=== PATIENT | female | born 1930 | race Caucasian/White ===

== ENCOUNTER 2016-05-06 06:15 | Day surgery (SDC) | payer MEDICARE, MEDICAID ==
[~2016-05-06] VITALS: Ht 162.6 cm; Wt 103.6 kg
[2016-05-06] VITALS (374 sets, daily range): BP systolic 137–184; BP diastolic 61–110; PULSE 47–87; TEMP 97.6–98.1; O2SAT 76–100
[~2016-05-06 06:15] MED LIST: ALEVE 220MG220 MG PO; ANTIVERT 12.512.5 MG PO; ASPIRIN E.C. 8181 MG PO; B-12 100 MCG; CALCIUM CARBON500 M1 PO; CELEBREX 200MG200 MG PO; CIPRO 500MG TA500 MG PO; COLACE 100100 MG/CAP PO; COZAAR 50MG50 MG/TAB PO; DIOVAN80 M1 PO; FERROUS SU325 MG/TAB PO; FLONASE NASAL S16 GM NS; FOLIC ACID0.4 MG PO; HCTZ12.5TAB PO; LASIX 20MG TABL20 MG PO; MAGNESIUM250 M1 PO; MELOXICAM PO; METHOTREXA2.5 MG/TAB PO; MIRAPEX 0.0.125 MG/T PO; MULTI VITAMINS1 TAB PO; MVI PO; NITROSTAT0.4 MG/TAB SL; PLAVIX 75MG TAB75 MG PO; POTASSIUM CHLO10 ME2 PO; PRESERVISION1 SGL PO; SINGULAIR 110 MG/TAB PO; TOPROL XL 50MG50 MG PO; ULTRAM 50MG TAB50 MG PO; VITAMIN D PO; VITAMIN D31000 I1 PO; VITAMINC1000TA; ZANTAC 150150 MG PO; ZOCOR5 MG PO
[2016-05-06 07:12] LABS: MEAN CELL VOLUME 96 fl (80.0-100.0); MEAN CORPUSCULAR HGB CONC 31 g/dl (33.0-37.0); MEAN PLATELET VOLUME 10.1 fl (7.4-10.4); PLATELET COUNT 212 K/mm3 (130-400); REDCELL DISTRIBUTION WIDTH-CV 15.6 % (11.5-14.5); WHITE BLOOD COUNT 5.7 K/mm3 (4.8-10.8)
[2016-05-06 07:16] LABS: HEMATOCRIT 31.5 % (37.0-47.0); HEMOGLOBIN 9.8 g/dl (12.5-16.0); MEAN CORPUSCULAR HEMOGLOBIN 30 pg (27.0-31.0)
[2016-05-06 07:18] LABS: PROTHROMBIN TIME 11.4 SECONDS (9.7-12.8)
[2016-05-06 07:26] LABS: CALCIUM 9.2 mg/dL (8.4-10.2); CREATININE, serum 2.1 mg/dL (0.52-1.25); POTASSIUM 4.1 mmol/L (3.4-5.0)
[2016-05-06] MEDS ORDERED: MAG-OX 400400 MG/TAB PO (07:34)
[2016-05-06] MEDS ORDERED: CALCIUM 600600 M2 PO (07:35)
[2016-05-06] MEDS ORDERED: FOLIC ACID0.8 MG PO (14:17)
[2016-05-07] VITALS (654 sets, daily range): BP systolic 129–155; BP diastolic 68–83; PULSE 52–66; TEMP 97.8–98.2; O2SAT 84–100
[2016-05-07 08:22] LABS: MEAN CELL VOLUME 95 fl (80.0-100.0); MEAN CORPUSCULAR HGB CONC 31 g/dl (33.0-37.0); MEAN PLATELET VOLUME 10.1 fl (7.4-10.4); PLATELET COUNT 205 K/mm3 (130-400); RED BLOOD COUNT 3.35 M/mm3 (4.10-5.30); REDCELL DISTRIBUTION WIDTH-CV 15.5 % (11.5-14.5); WHITE BLOOD COUNT 5.6 K/mm3 (4.8-10.8)
[2016-05-07 08:33] LABS: CALCIUM 8.9 mg/dL (8.4-10.2); CREATININE, serum 1.3 mg/dL (0.52-1.25); POTASSIUM 4.3 mmol/L (3.4-5.0)
[2016-05-07 08:37] LABS: HEMATOCRIT 31.9 % (37.0-47.0); HEMOGLOBIN 9.9 g/dl (12.5-16.0); MEAN CORPUSCULAR HEMOGLOBIN 30 pg (27.0-31.0)
[2016-05-07] MEDS ORDERED: BRILINTA90 MG PO (10:47)
== END 2016-05-07 11:35 | disposition home or self-care (01) ==
LOC: COL.RAD 06:15 → IMCU 17:00 → COL.RAD 05-07 11:35
PROVIDERS: Internal Medicine Cardiovascular Disease
DX: I25.10 Atherosclerotic heart disease of native coronary artery without angina pectoris (principal); I35.8 Other nonrheumatic aortic valve disorders; R06.00 Dyspnea, unspecified; I10 Essential (primary) hypertension; E78.5 Hyperlipidemia, unspecified; G47.33 Obstructive sleep apnea (adult) (pediatric); Z82.49 Family history of ischemic heart disease and other diseases of the circulatory system; Z79.82 Long term (current) use of aspirin; Z79.02 Long term (current) use of antithrombotics/antiplatelets; Z79.899 Other long term (current) drug therapy
CPT/HCPCS: OP; C1725; C1760; C1769; C1874; C1887; C1894; C9600; C9601; J0583; J2250; J3010; Q9967

== ENCOUNTER 2016-09-24 15:30 | Inpatient (IN) | payer MEDICARE, MEDICAID ==
[~2016-09-24] VITALS: Ht 162.6 cm; Wt 94.9 kg
[2016-09-24 00:10] VITALS: BP 122/69; PULSE 58; TEMP 98.1
[~2016-09-24 15:30] MED LIST changes: +BRILINTA90 MG PO; +CALCIUM 600600 M2 PO; +FOLIC ACID0.8 MG PO; +MAG-OX 400400 MG/TAB PO
[2016-09-24 16:49] VITALS: BP 105/48; PULSE 63; TEMP 98
[2016-09-24] MEDS ORDERED: FLONASE NASAL S16 GM NS (17:03)
[2016-09-24] MEDS ORDERED: COLACE 100100 MG/CAP PO (17:07)
[2016-09-24] MEDS ORDERED: BRILINTA60 MG PO (17:22)
[2016-09-24 18:21] VITALS: BP 124/56; PULSE 64
[2016-09-24] MEDS ORDERED: BRILINTA90 MG PO (18:32)
[2016-09-24 20:50] VITALS: BP 128/66; PULSE 61
[2016-09-24 21:44] VITALS: TEMP 98
[2016-09-24 23:00] VITALS: BP 114/67; PULSE 53
[2016-09-25] VITALS (398 sets, daily range): BP systolic 99–137; BP diastolic 54–86; PULSE 56–74; TEMP 97.1–97.9; O2SAT 84–100
[2016-09-25 06:48] LABS: BASO % 0.2 % (0.0-2.0); EOS # 0.1 (0.0-0.7); EOS % 1.9 % (0-4.0); GRAN # 3.4 (1.4-6.5); GRAN % 70.7 % (42.2-75.2); LYMPH # 0.8 (1.2-3.4); LYMPH % 16.9 % (20.0-51.0); MEAN CELL VOLUME 98 fl (80.0-100.0); MEAN CORPUSCULAR HGB CONC 31 g/dl (33.0-37.0); MEAN PLATELET VOLUME 10.6 fl (7.4-10.4); MONO # 0.5 (0.1-0.6); MONO % 9.7 % (1.7-9.3); PLATELET COUNT 234 K/mm3 (130-400); RED BLOOD COUNT 2.97 M/mm3 (4.10-5.30); REDCELL DISTRIBUTION WIDTH-CV 15.1 % (11.5-14.5); WHITE BLOOD COUNT 4.7 K/mm3 (4.8-10.8)
[2016-09-25 06:51] LABS: HEMATOCRIT 29.1 % (37.0-47.0); MEAN CORPUSCULAR HEMOGLOBIN 30 pg (27.0-31.0)
[2016-09-25 06:55] LABS: PROTHROMBIN TIME 11.6 SECONDS (9.7-12.8)
[2016-09-25 06:58] LABS: PARTIAL THROMBOPLASTIN TIME 28.7 SECONDS (26.0-37.0)
[2016-09-25 07:19] LABS: ADJUSTED CALCIUM 9.1 mg/dL (8.4-10.2); ALBUMIN 3.3 gm/dL (3.5-5.0); BILIRUBIN,TOTAL 0.6 mg/dL (0.0-1.0); CALCIUM 8.5 mg/dL (8.4-10.2); CREATININE, serum 1.68 mg/dL (0.52-1.25); POTASSIUM 3.9 mmol/L (3.4-5.0); TOTAL PROTEIN 5.8 gm/dL (6.4-8.2)
[2016-09-25 07:33] LABS: TROPONIN-I 0.999 ng/mL (0.000-0.034)
[2016-09-26] VITALS (36 sets, daily range): BP systolic 113–121; BP diastolic 58–65; PULSE 61–72; TEMP 97.1–97.8; O2SAT 94–98
[2016-09-26 05:24] LABS: MEAN CELL VOLUME 97 fl (80.0-100.0); MEAN CORPUSCULAR HGB CONC 32 g/dl (33.0-37.0); MEAN PLATELET VOLUME 10.5 fl (7.4-10.4); PLATELET COUNT 213 K/mm3 (130-400); RED BLOOD COUNT 3.09 M/mm3 (4.10-5.30); REDCELL DISTRIBUTION WIDTH-CV 15.4 % (11.5-14.5); WHITE BLOOD COUNT 5.6 K/mm3 (4.8-10.8)
[2016-09-26 05:31] LABS: HEMATOCRIT 29.9 % (37.0-47.0); HEMOGLOBIN 9.6 g/dl (12.5-16.0); MEAN CORPUSCULAR HEMOGLOBIN 31 pg (27.0-31.0)
[2016-09-26 05:38] LABS: CALCIUM 8.4 mg/dL (8.4-10.2); CREATININE, serum 1.42 mg/dL (0.52-1.25); POTASSIUM 4.3 mmol/L (3.4-5.0)
[2016-09-26] MEDS ORDERED: LIPITOR20 MG PO (10:25)
[2016-09-26] MEDS ORDERED: ZESTRIL 10MG10 MG PO (10:26)
== END 2016-09-26 12:07 | disposition home or self-care (01) | DRG 247 ==
LOC: MEDICAL 15:30 → IMCU 09-25 09:56 → ICU 09-25 19:05
PROVIDERS: Family Medicine; Internal Medicine Cardiovascular Disease
PROC: 027035Z Dilation of Coronary Artery, One Artery with Two Drug-eluting Intraluminal Devices, Percutaneous Approach (ICD-10-PCS; principal; 2016-09-25)
PROC: B2111ZZ Fluoroscopy of Multiple Coronary Arteries using Low Osmolar Contrast (ICD-10-PCS; 2016-09-25)
DX: I21.4 Non-ST elevation (NSTEMI) myocardial infarction (principal); I25.10 Atherosclerotic heart disease of native coronary artery without angina pectoris; I10 Essential (primary) hypertension; G47.33 Obstructive sleep apnea (adult) (pediatric); I35.0 Nonrheumatic aortic (valve) stenosis; I12.9 Hypertensive chronic kidney disease with stage 1 through stage 4 chronic kidney disease, or unspecified chronic kidney disease; N18.9 Chronic kidney disease, unspecified
CPT/HCPCS: 99222-AI; 99233-AI; 99239; A9270-GY; C1760; C1769; C1874; C1887; C9600; J0583; J2250; J3010; J7030; Q9967

== ENCOUNTER 2016-11-17 15:12 | Inpatient (IN) | payer MEDICARE, MEDICAID ==
[~2016-11-17] VITALS: Ht 160 cm; Wt 94.8 kg
[2016-11-17] VITALS (24 sets, daily range): BP systolic 126–157; BP diastolic 40–77; PULSE 63–65; TEMP 97.2–97.8; O2SAT 93–100
[~2016-11-17 15:12] MED LIST changes: +BRILINTA60 MG PO; +LIPITOR20 MG PO; +ZESTRIL 10MG10 MG PO
[2016-11-17] MEDS ORDERED: CALCIUM CARB500 MG PO (16:38)
[2016-11-18 00:17] VITALS: BP 113/50; PULSE 60; TEMP 98
[2016-11-18 03:58] VITALS: BP 104/53; PULSE 59; TEMP 97.9
[2016-11-18 07:34] VITALS: BP 118/37; PULSE 60; TEMP 97.2
[2016-11-18 09:17] VITALS: BP 113/59; PULSE 74; TEMP 98.2
[2016-11-18 11:48] VITALS: BP 143/69; PULSE 60; TEMP 96.8
== END 2016-11-18 14:35 | disposition home or self-care (01) | DRG 244 ==
LOC: IMCU 15:12 → MEDICAL 16:13 → ICU 16:13 → MEDICAL 16:45
PROC: 0JH606Z Insertion of Pacemaker, Dual Chamber into Chest Subcutaneous Tissue and Fascia, Open Approach (ICD-10-PCS; principal; 2016-11-17)
PROC: 02H63JZ Insertion of Pacemaker Lead into Right Atrium, Percutaneous Approach (ICD-10-PCS; 2016-11-17)
PROC: 02HK3JZ Insertion of Pacemaker Lead into Right Ventricle, Percutaneous Approach (ICD-10-PCS; 2016-11-17)
DX: I44.2 Atrioventricular block, complete (principal)
CPT/HCPCS: C1769; C1785; C1894; C1898; J2250; J3010; J3370; J7050

== ENCOUNTER → 2017-09-17 | Outpatient (REF) ==
[~2017-09-17] MED LIST changes: +CALCIUM CARB500 MG PO; +CELEBREX 1100 MG/CAP PO; +LIPITOR 40MG TA40 MG PO; +TOPROL XL 25MG25 MG PO; +TYLENOL 500MG500 MG PO; +XYZAL5 MG PO; +ZANTAC 150MG T150 MG PO
== END ==
LOC: ZLAB.STJ 09:48
DX: Z53.8 Procedure and treatment not carried out for other reasons (principal)

== ENCOUNTER → 2017-10-04 | Outpatient (REF) ==
[2017-10-04 09:44] LABS: CALCIUM 8.4 mg/dL (8.4-10.2); CREATININE, serum 2.33 mg/dL (0.52-1.25)
== END ==
LOC: ZLAB.STJ 09:24
PROVIDERS: Internal Medicine Nephrology
DX: Z99.2 Dependence on renal dialysis (principal)

== ENCOUNTER → 2017-10-11 | Outpatient (REF) ==
[2017-10-11 09:26] LABS: URINE PROTEIN:CREAT RATIO 0.38 (0.00-0.14)
[2017-10-11 11:11] LABS: CREATININE, serum 2.14 mg/dL (0.52-1.25); URINE CREATININE CLEARANCE 14.6 mL/min (88-128); URINE TOTAL VOLUME 275 mL
== END ==
LOC: ZLAB.STJ 09:10
PROVIDERS: Internal Medicine Nephrology
DX: Z99.2 Dependence on renal dialysis (principal)

== ENCOUNTER → 2017-10-25 | Outpatient (REF) ==
[~2017-10-25] MED LIST changes: +RENO CAPS1 SGL PO
[2017-10-25 15:28] LABS: CALCIUM 8.9 mg/dL (8.4-10.2); CREATININE, serum 2.31 mg/dL (0.52-1.25); POTASSIUM 4.3 mmol/L (3.4-5.0)
== END ==
LOC: ZLAB.STJ 14:58
PROVIDERS: Internal Medicine Nephrology
DX: N18.9 Chronic kidney disease, unspecified (principal)

== ENCOUNTER 2017-11-16 12:25 | Inpatient (IN) | payer MEDICARE, MEDICAID ==
[~2017-11-16] VITALS: Ht 165.1 cm; Wt 79.2 kg
[2017-11-16] VITALS (443 sets, daily range): BP systolic 69–111; BP diastolic 37–71; PULSE 94–117; TEMP 97.6–98; O2SAT 84–99
[~2017-11-16 12:25] MED LIST changes: +LASIX 40MG TABL40 MG PO
[2017-11-16 13:02] LABS: BASO % 0.6 % (0.0-2.0); EOS # 0.1 (0.0-0.7); EOS % 1.9 % (0-4.0); GRAN % 74.5 % (42.2-75.2); LYMPH # 0.7 (1.2-3.4); LYMPH % 12.2 % (20.0-51.0); MEAN CELL VOLUME 101 fl (80.0-100.0); MEAN CORPUSCULAR HGB CONC 32 g/dl (33.0-37.0); MEAN PLATELET VOLUME 10.1 fl (7.4-10.4); MONO # 0.6 (0.1-0.6); MONO % 10.4 % (1.7-9.3); PLATELET COUNT 204 K/mm3 (130-400); RED BLOOD COUNT 2.76 M/mm3 (4.10-5.30); REDCELL DISTRIBUTION WIDTH-CV 16.3 % (11.5-14.5)
[2017-11-16 13:05] LABS: PROTHROMBIN TIME 11.4 SECONDS (9.7-12.8)
[2017-11-16 13:07] LABS: PARTIAL THROMBOPLASTIN TIME 33.8 SECONDS (26.0-37.0)
[2017-11-16 13:11] LABS: ALBUMIN 3.7 gm/dL (3.5-5.0); BILIRUBIN,TOTAL 0.8 mg/dL (0.0-1.0); CALCIUM 8.6 mg/dL (8.4-10.2); CREATININE, serum 0.86 mg/dL (0.52-1.25); MAGNESIUM 1.9 mg/dL (1.6-2.3); POTASSIUM 3.5 mmol/L (3.4-5.0); TOTAL PROTEIN 6.4 gm/dL (6.4-8.2)
[2017-11-16 13:13] LABS: HEMOGLOBIN 8.9 g/dl (12.5-16.0); MEAN CORPUSCULAR HEMOGLOBIN 32 pg (27.0-31.0)
[2017-11-16 13:25] LABS: TROPONIN-I 0.039 ng/mL (0.000-0.034)
[2017-11-16] MEDS ORDERED: PRESERVISION1 SGL PO (13:36)
[2017-11-16] MEDS ORDERED: LIQUACEL 30 ML30 ML PO (13:45)
[2017-11-16] MEDS ORDERED: LASIX 40MG TABL40 MG PO (13:46)
[2017-11-16] MEDS ORDERED: COLACE 100100 MG/CAP PO (13:48)
[2017-11-16] MEDS ORDERED: VITAMINC1000TA PO (13:49)
[2017-11-16] MEDS ORDERED: B-12 100 MCG PO (13:50)
[2017-11-16] MEDS ORDERED: BRILINTA90 MG PO (13:58)
[2017-11-16] MEDS ORDERED: FERROUS SU325 MG/TAB PO (13:58)
[2017-11-16] MEDS ORDERED: LIPITOR 40MG TA40 MG PO (13:59)
[2017-11-17] VITALS (1318 sets, daily range): BP systolic 87–124; BP diastolic 46–83; PULSE 79–86; TEMP 97–97.5; O2SAT 89–100
[2017-11-17 05:22] LABS: BASO % 0.5 % (0.0-2.0); EOS # 0.1 (0.0-0.7); EOS % 2.4 % (0-4.0); GRAN # 2.7 (1.4-6.5); GRAN % 64.5 % (42.2-75.2); LYMPH # 0.8 (1.2-3.4); LYMPH % 19.8 % (20.0-51.0); MEAN CELL VOLUME 102 fl (80.0-100.0); MEAN CORPUSCULAR HGB CONC 31 g/dl (33.0-37.0); MEAN PLATELET VOLUME 10.2 fl (7.4-10.4); MONO # 0.5 (0.1-0.6); MONO % 12.3 % (1.7-9.3); PLATELET COUNT 190 K/mm3 (130-400); REDCELL DISTRIBUTION WIDTH-CV 16.3 % (11.5-14.5)
[2017-11-17 05:25] LABS: HEMATOCRIT 22.5 % (37.0-47.0); MEAN CORPUSCULAR HEMOGLOBIN 32 pg (27.0-31.0)
[2017-11-17 05:31] LABS: CREATININE, serum 1.52 mg/dL (0.52-1.25); POTASSIUM 3.5 mmol/L (3.4-5.0)
[2017-11-18] VITALS (379 sets, daily range): BP systolic 98–139; BP diastolic 45–95; PULSE 67–89; TEMP 97–98.7; O2SAT 91–100
[2017-11-18 05:59] LABS: BASO % 0.5 % (0.0-2.0); EOS # 0.1 (0.0-0.7); GRAN # 5.3 (1.4-6.5); GRAN % 80.4 % (42.2-75.2); LYMPH # 0.6 (1.2-3.4); MEAN CELL VOLUME 101 fl (80.0-100.0); MEAN CORPUSCULAR HGB CONC 32 g/dl (33.0-37.0); MEAN PLATELET VOLUME 10.4 fl (7.4-10.4); MONO # 0.5 (0.1-0.6); MONO % 7.5 % (1.7-9.3); PLATELET COUNT 204 K/mm3 (130-400)
[2017-11-18 06:02] LABS: HEMATOCRIT 28.2 % (37.0-47.0); HEMOGLOBIN 8.9 g/dl (12.5-16.0); MEAN CORPUSCULAR HEMOGLOBIN 32 pg (27.0-31.0)
[2017-11-18 06:13] LABS: CALCIUM 8.2 mg/dL (8.4-10.2); CREATININE, serum 2.06 mg/dL (0.52-1.25); POTASSIUM 3.6 mmol/L (3.4-5.0)
[2017-11-19 00:20] VITALS: BP 117/55; PULSE 69; TEMP 98
[2017-11-19 04:44] VITALS: BP 115/61; PULSE 71; TEMP 97.9
[2017-11-19 06:52] LABS: BASO % 0.4 % (0.0-2.0); EOS # 0.2 (0.0-0.7); EOS % 2.8 % (0-4.0); GRAN # 5.3 (1.4-6.5); GRAN % 78.7 % (42.2-75.2); LYMPH # 0.6 (1.2-3.4); LYMPH % 8.1 % (20.0-51.0); MEAN CELL VOLUME 97 fl (80.0-100.0); MEAN CORPUSCULAR HGB CONC 33 g/dl (33.0-37.0); MEAN PLATELET VOLUME 10.4 fl (7.4-10.4); MONO # 0.6 (0.1-0.6); MONO % 9.1 % (1.7-9.3); PLATELET COUNT 194 K/mm3 (130-400); RED BLOOD COUNT 3.01 M/mm3 (4.10-5.30); REDCELL DISTRIBUTION WIDTH-CV 17.8 % (11.5-14.5)
[2017-11-19 06:53] LABS: HEMATOCRIT 29.2 % (37.0-47.0); HEMOGLOBIN 9.5 g/dl (12.5-16.0); MEAN CORPUSCULAR HEMOGLOBIN 32 pg (27.0-31.0)
[2017-11-19 07:04] LABS: CALCIUM 8.3 mg/dL (8.4-10.2); CREATININE, serum 1.89 mg/dL (0.52-1.25); POTASSIUM 3.3 mmol/L (3.4-5.0)
[2017-11-19 08:30] VITALS: BP 108/57; PULSE 69; TEMP 97.4
[2017-11-19 11:45] LABS: CREATININE, serum 1.52 mg/dL (0.52-1.25); URINE CREATININE CLEARANCE 0.1 mL/min (88-128); URINE TOTAL VOLUME 425 mL
[2017-11-19 12:52] VITALS: BP 115/70; PULSE 74; TEMP 97.6
[2017-11-19 15:59] VITALS: BP 112/52; PULSE 59; TEMP 97.6
[2017-11-19 19:50] VITALS: BP 119/68; PULSE 79; TEMP 98.7
[2017-11-20 00:16] VITALS: BP 121/58; PULSE 73; TEMP 98.1
[2017-11-20 03:45] VITALS: BP 121/60; PULSE 69; TEMP 98.4
[2017-11-20 07:07] LABS: MEAN CELL VOLUME 99 fl (80.0-100.0); MEAN CORPUSCULAR HGB CONC 32 g/dl (33.0-37.0); MEAN PLATELET VOLUME 10.4 fl (7.4-10.4); PLATELET COUNT 213 K/mm3 (130-400); RED BLOOD COUNT 3.09 M/mm3 (4.10-5.30); REDCELL DISTRIBUTION WIDTH-CV 17.3 % (11.5-14.5)
[2017-11-20 07:21] VITALS: BP 119/64; PULSE 69; TEMP 98.4
[2017-11-20 07:23] LABS: CALCIUM 8.2 mg/dL (8.4-10.2); CREATININE, serum 2.3 mg/dL (0.52-1.25); POTASSIUM 3.3 mmol/L (3.4-5.0)
[2017-11-20 07:27] LABS: HEMATOCRIT 30.6 % (37.0-47.0); HEMOGLOBIN 9.8 g/dl (12.5-16.0); MEAN CORPUSCULAR HEMOGLOBIN 32 pg (27.0-31.0)
[2017-11-20 11:30] VITALS: BP 126/79; PULSE 72; TEMP 98.3
[2017-11-20 16:12] VITALS: BP 118/71; PULSE 70; TEMP 98.1
[2017-11-20 20:00] VITALS: BP 129/62; PULSE 71; TEMP 99.2
[2017-11-21] VITALS: BP 124/68; PULSE 76; TEMP 98.2
[2017-11-21 04:00] VITALS: BP 112/59; PULSE 61; TEMP 98.9
[2017-11-21 07:10] VITALS: BP 121/60; PULSE 72; TEMP 98.6
[2017-11-21 09:25] LABS: HEMOGLOBIN 10.8 g/dl (12.5-16.0); MEAN CELL VOLUME 100 fl (80.0-100.0); MEAN CORPUSCULAR HEMOGLOBIN 32 pg (27.0-31.0); MEAN CORPUSCULAR HGB CONC 32 g/dl (33.0-37.0); MEAN PLATELET VOLUME 9.7 fl (7.4-10.4); PLATELET COUNT 237 K/mm3 (130-400); RED BLOOD COUNT 3.43 M/mm3 (4.10-5.30); REDCELL DISTRIBUTION WIDTH-CV 17.2 % (11.5-14.5)
[2017-11-21 09:27] LABS: HEMATOCRIT 34.2 % (37.0-47.0)
[2017-11-21 09:34] LABS: CALCIUM 8.6 mg/dL (8.4-10.2); CREATININE, serum 2.17 mg/dL (0.52-1.25); POTASSIUM 3.4 mmol/L (3.4-5.0)
[2017-11-21 12:18] VITALS: BP 117/63; PULSE 68; TEMP 98.4
[2017-11-21 16:00] VITALS: BP 133/73; PULSE 76; TEMP 98.3
[2017-11-21 21:04] VITALS: BP 132/94; PULSE 79; TEMP 98
[2017-11-22 04:00] VITALS: BP 98/43; PULSE 56; TEMP 98.4
[2017-11-22 05:14] VITALS: BP 119/62; PULSE 66
[2017-11-22 07:20] VITALS: BP 120/63; PULSE 76; TEMP 98
[2017-11-22] MEDS ORDERED: PACERONE400 MG PO (11:14)
[2017-11-22 11:45] VITALS: BP 120/67; BP 132/64; PULSE 70; PULSE 72; TEMP 98.4
[2017-11-22 12:57] VITALS: BP 120/67; PULSE 70; TEMP 98.4
== END 2017-11-22 14:17 | DRG 280 ==
LOC: COL.ER 12:25 → ICU 13:32 → MEDICAL 11-18 11:25 → ICU 11-18 11:25 → MEDICAL 11-18 11:25
PROVIDERS: Emergency Medicine; Internal Medicine Cardiovascular Disease; Internal Medicine Nephrology
PROC: 5A1D70Z Performance of Urinary Filtration, Intermittent, Less than 6 Hours Per Day (ICD-10-PCS; principal; 2017-11-18)
PROC: 5A1D70Z Performance of Urinary Filtration, Intermittent, Less than 6 Hours Per Day (ICD-10-PCS; 2017-11-20)
DX: I48.0 Paroxysmal atrial fibrillation (principal); I21.A1 Myocardial infarction type 2; N18.6 End stage renal disease; N17.9 Acute kidney failure, unspecified; I50.22 Chronic systolic (congestive) heart failure; I13.2 Hypertensive heart and chronic kidney disease with heart failure and with stage 5 chronic kidney disease, or end stage renal disease; Z66 Do not resuscitate; I25.10 Atherosclerotic heart disease of native coronary artery without angina pectoris; Z95.5 Presence of coronary angioplasty implant and graft; Z95.0 Presence of cardiac pacemaker; D63.1 Anemia in chronic kidney disease; I35.0 Nonrheumatic aortic (valve) stenosis
CPT/HCPCS: J0282; J0882; J1650; J1940; J2916; J7030; J7060; P9016

== ENCOUNTER → 2017-12-01 | Outpatient (CLI) | payer MEDICARE, MEDICAID ==
[~2017-12-01] MED LIST changes: +B-12 100 MCG PO; +LIQUACEL 30 ML30 ML PO; +PACERONE400 MG PO; +VITAMINC1000TA PO
== END ==
LOC: COL.VAS 09:39
DX: N18.6 End stage renal disease (principal)
CPT/HCPCS: G0365

== ENCOUNTER → 2018-01-24 | Outpatient (CLI) | payer MEDICARE, MEDICAID | LOC: COL.VAS 11:41 | DX: N18.6 End stage renal disease (principal) | CPT/HCPCS: G0365 ==

== ENCOUNTER 2018-03-21 11:27 | Inpatient (IN) | payer MEDICARE, MEDICAID ==
[~2018-03-21] VITALS: Ht 165.1 cm; Wt 72.8 kg
[2018-03-21] VITALS (10 sets, daily range): BP systolic 90–120; BP diastolic 29–47; PULSE 59–71; TEMP 97.7–98.5
[2018-03-21 14:40] LABS: BASO % 0.7 % (0.0-2.0); EOS % 0.9 % (0-4.0); INR 0.9 (0.8-3.0); LYMPH # 0.9 (1.2-3.4); LYMPH % 21.3 % (20.0-51.0); MEAN CELL VOLUME 115 fl (80.0-100.0); MEAN CORPUSCULAR HGB CONC 31 g/dl (33.0-37.0); MEAN PLATELET VOLUME 9.5 fl (7.4-10.4); MONO # 0.3 (0.1-0.6); MONO % 7.6 % (1.7-9.3); PLATELET COUNT 193 K/mm3 (130-400); PROTHROMBIN TIME 10.4 SECONDS (9.7-12.8); RED BLOOD COUNT 1.88 M/mm3 (4.10-5.30); REDCELL DISTRIBUTION WIDTH-CV 17.2 % (11.5-14.5)
[2018-03-21 14:52] LABS: HEMATOCRIT 21.6 % (37.0-47.0); HEMOGLOBIN 6.6 g/dl (12.5-16.0); MEAN CORPUSCULAR HEMOGLOBIN 35 pg (27.0-31.0)
[2018-03-21 15:12] LABS: ALBUMIN 3.3 gm/dL (3.5-5.0); BILIRUBIN,TOTAL 0.3 mg/dL (0.0-1.0); CALCIUM 8.6 mg/dL (8.4-10.2); CREATININE, serum 3.01 mg/dL (0.52-1.25); TOTAL PROTEIN 5.6 gm/dL (6.4-8.2)
[2018-03-21] MEDS ORDERED: CORDARONE200 MG/TAB PO (17:31)
[2018-03-21] MEDS ORDERED: TYLENOL 500MG500 MG PO (17:32)
[2018-03-21] MEDS ORDERED: VITAMIN D 1001000 IU PO (17:33)
[2018-03-21] MEDS ORDERED: MIRALAX PA17 GM/Dose PO (17:36)
[2018-03-21] MEDS ORDERED: NITROSTAT0.4 MG/TAB SL (17:36)
[2018-03-21] MEDS ORDERED: ZANTAC 150MG T150 MG PO (17:37)
[2018-03-21] MEDS ORDERED: PRESERVISION1 SGL PO (17:38)
[2018-03-21] MEDS ORDERED: TOPROL XL 25MG25 MG PO (17:40)
[2018-03-22] VITALS (15 sets, daily range): BP systolic 93–134; BP diastolic 35–76; PULSE 59–68; TEMP 97.4–98.4
[2018-03-22 07:54] LABS: BASO % 0.2 % (0.0-2.0); EOS # 0.1 (0.0-0.7); EOS % 1.1 % (0-4.0); GRAN # 3.5 (1.4-6.5); GRAN % 78.3 % (42.2-75.2); LYMPH # 0.5 (1.2-3.4); MEAN CORPUSCULAR HGB CONC 32 g/dl (33.0-37.0); MEAN PLATELET VOLUME 9.6 fl (7.4-10.4); MONO # 0.4 (0.1-0.6); MONO % 8.7 % (1.7-9.3); PLATELET COUNT 161 K/mm3 (130-400); RED BLOOD COUNT 1.93 M/mm3 (4.10-5.30); REDCELL DISTRIBUTION WIDTH-CV 19.9 % (11.5-14.5)
[2018-03-22 07:56] LABS: HEMATOCRIT 20.8 % (37.0-47.0); MEAN CELL VOLUME 108 fl (80.0-100.0); MEAN CORPUSCULAR HEMOGLOBIN 34 pg (27.0-31.0)
[2018-03-22 08:00] LABS: HEMOGLOBIN 6.6 g/dl (12.5-16.0)
[2018-03-22 08:09] LABS: ALBUMIN 2.8 gm/dL (3.5-5.0); CALCIUM 8.2 mg/dL (8.4-10.2); CREATININE, serum 3.01 mg/dL (0.52-1.25); PHOSPHOROUS 5.5 mg/dL (2.5-4.5); POTASSIUM 3.8 mmol/L (3.4-5.0)
[2018-03-23] VITALS (13 sets, daily range): BP systolic 115–151; BP diastolic 39–66; PULSE 59–82; TEMP 97.2–98.7
[2018-03-23 06:49] LABS: BASO % 0.9 % (0.0-2.0); EOS # 0.1 (0.0-0.7); EOS % 1.5 % (0-4.0); GRAN # 2.2 (1.4-6.5); GRAN % 68.6 % (42.2-75.2); LYMPH # 0.5 (1.2-3.4); LYMPH % 16.2 % (20.0-51.0); MEAN CORPUSCULAR HGB CONC 32 g/dl (33.0-37.0); MEAN PLATELET VOLUME 9.6 fl (7.4-10.4); MONO # 0.4 (0.1-0.6); MONO % 12.2 % (1.7-9.3); PLATELET COUNT 145 K/mm3 (130-400); RED BLOOD COUNT 2.75 M/mm3 (4.10-5.30); REDCELL DISTRIBUTION WIDTH-CV 20.3 % (11.5-14.5)
[2018-03-23 06:58] LABS: HEMATOCRIT 27.9 % (37.0-47.0); MEAN CELL VOLUME 102 fl (80.0-100.0); MEAN CORPUSCULAR HEMOGLOBIN 33 pg (27.0-31.0)
[2018-03-23 06:59] LABS: RETIC # 0.13 M/mm3 (0.02-0.16); RETIC % 4.9 % (0.5-3.52)
[2018-03-23 07:35] LABS: BILIRUBIN,TOTAL 0.6 mg/dL (0.0-1.0); CALCIUM 8.3 mg/dL (8.4-10.2); CREATININE, serum 1.88 mg/dL (0.52-1.25); PHOSPHOROUS 3.2 mg/dL (2.5-4.5); POTASSIUM 3.7 mmol/L (3.4-5.0); TOTAL PROTEIN 5.3 gm/dL (6.4-8.2)
[2018-03-23 08:13] LABS: THYROID STIMULATING HORMONE 8.5 uIU/mL (0.465-4.680)
[2018-03-23 13:40] LABS: FOLATE (FOLIC ACID) 14.6 ng/mL (7.0-31.4)
[2018-03-24 00:15] VITALS: BP 130/51; PULSE 65; TEMP 98.9
[2018-03-24 04:27] VITALS: BP 117/42; PULSE 66; TEMP 99.4
[2018-03-24 08:24] VITALS: BP 140/51; PULSE 80; TEMP 98
[2018-03-24 08:41] LABS: BASO % 0.4 % (0.0-2.0); EOS % 0.4 % (0-4.0); GRAN % 79.4 % (42.2-75.2); LYMPH # 0.5 (1.2-3.4); LYMPH % 8.9 % (20.0-51.0); MEAN CELL VOLUME 102 fl (80.0-100.0); MEAN CORPUSCULAR HGB CONC 32 g/dl (33.0-37.0); MEAN PLATELET VOLUME 9.7 fl (7.4-10.4); MONO # 0.5 (0.1-0.6); MONO % 10.3 % (1.7-9.3); PLATELET COUNT 167 K/mm3 (130-400); RED BLOOD COUNT 2.52 M/mm3 (4.10-5.30); REDCELL DISTRIBUTION WIDTH-CV 19.6 % (11.5-14.5)
[2018-03-24 08:42] LABS: HEMATOCRIT 25.6 % (37.0-47.0); HEMOGLOBIN 8.3 g/dl (12.5-16.0); MEAN CORPUSCULAR HEMOGLOBIN 33 pg (27.0-31.0)
[2018-03-24 08:52] LABS: ALBUMIN 2.7 gm/dL (3.5-5.0); CALCIUM 8.4 mg/dL (8.4-10.2); CREATININE, serum 2.26 mg/dL (0.52-1.25); POTASSIUM 3.6 mmol/L (3.4-5.0)
[2018-03-24] MEDS ORDERED: SYNTHROID 0.0.025 MG PO (10:19)
[2018-03-24 13:30] LABS: KAPPA FREE LIGHT CHAIN-SERUM 8.31 mg/dL (()); LAMDA FREE LIGHT CHAIN SERUM 3.69 mg/dL (())
== END 2018-03-24 17:10 | DRG 377 ==
LOC: COL.ER 11:27 → MEDICAL 15:32
PROVIDERS: Emergency Medicine; Internal Medicine Gastroenterology; Internal Medicine Medical Oncology; Internal Medicine Nephrology
PROC: 5A1D70Z Performance of Urinary Filtration, Intermittent, Less than 6 Hours Per Day (ICD-10-PCS; 2018-03-22)
PROC: 0W3P8ZZ Control Bleeding in Gastrointestinal Tract, Via Natural or Artificial Opening Endoscopic (ICD-10-PCS; principal; 2018-03-23 14:00)
PROC: 0DJD8ZZ Inspection of Lower Intestinal Tract, Via Natural or Artificial Opening Endoscopic (ICD-10-PCS; 2018-03-23 14:00)
PROC: 5A1D70Z Performance of Urinary Filtration, Intermittent, Less than 6 Hours Per Day (ICD-10-PCS; 2018-03-24)
DX: K57.31 Diverticulosis of large intestine without perforation or abscess with bleeding (principal); N18.6 End stage renal disease; I13.2 Hypertensive heart and chronic kidney disease with heart failure and with stage 5 chronic kidney disease, or end stage renal disease; I50.22 Chronic systolic (congestive) heart failure; D62 Acute posthemorrhagic anemia; Z66 Do not resuscitate; D12.2 Benign neoplasm of ascending colon; D12.5 Benign neoplasm of sigmoid colon; I25.10 Atherosclerotic heart disease of native coronary artery without angina pectoris; I48.0 Paroxysmal atrial fibrillation; Z79.01 Long term (current) use of anticoagulants; Z95.2 Presence of prosthetic heart valve; Z95.5 Presence of coronary angioplasty implant and graft; Z99.2 Dependence on renal dialysis; E78.5 Hyperlipidemia, unspecified; Z95.0 Presence of cardiac pacemaker; D63.1 Anemia in chronic kidney disease; E03.9 Hypothyroidism, unspecified
CPT/HCPCS: J0882; J2704; J2916; J7050; J7120; P9016

== ENCOUNTER 2018-04-06 15:34 | Emergency (ER) | payer MEDICARE, MEDICAID ==
[~2018-04-06] VITALS: Ht 165.1 cm; Wt 72.7 kg
[~2018-04-06 15:34] MED LIST changes: +CORDARONE200 MG/TAB PO; +MIRALAX PA17 GM/Dose PO; +SYNTHROID 0.0.025 MG PO; +VITAMIN D 1001000 IU PO
[2018-04-06 15:37] VITALS: TEMP 97.9
[2018-04-06 16:51] LABS: BASO % 0.6 % (0.0-2.0); EOS % 0.4 % (0-4.0); GRAN # 3.8 (1.4-6.5); GRAN % 73.3 % (42.2-75.2); HEMATOCRIT 26.9 % (37.0-47.0); HEMOGLOBIN 8.7 g/dl (12.5-16.0); LYMPH # 0.7 (1.2-3.4); LYMPH % 13.8 % (20.0-51.0); MEAN CELL VOLUME 103 fl (80.0-100.0); MEAN CORPUSCULAR HEMOGLOBIN 33 pg (27.0-31.0); MEAN CORPUSCULAR HGB CONC 32 g/dl (33.0-37.0); MEAN PLATELET VOLUME 8.9 fl (7.4-10.4); MONO # 0.6 (0.1-0.6); MONO % 11.5 % (1.7-9.3); PLATELET COUNT 281 K/mm3 (130-400); RED BLOOD COUNT 2.61 M/mm3 (4.10-5.30); REDCELL DISTRIBUTION WIDTH-CV 17.2 % (11.5-14.5)
[2018-04-06 17:01] LABS: ALBUMIN 3.1 gm/dL (3.5-5.0); BILIRUBIN,TOTAL 0.3 mg/dL (0.0-1.0); CALCIUM 8.4 mg/dL (8.4-10.2); CREATININE, serum 2.68 mg/dL (0.52-1.25); POTASSIUM 3.9 mmol/L (3.4-5.0); TOTAL PROTEIN 5.9 gm/dL (6.4-8.2); URIC ACID 4.5 mg/dL (2.5-6.2)
[2018-04-06 17:17] LABS: SYNOVIAL FL. MONONUCLEAR 7.1 % (0-75); SYNOVIAL FLUID RBC 41000 /mm3 (0-0); SYNOVIAL FLUID WBC 17349 /mm3 (200-600)
[2018-04-06] MEDS ORDERED: PRESERVISION1 SGL PO (17:17)
[2018-04-06] MEDS ORDERED: VITAMIN D31000 I1 PO (17:17)
[2018-04-06 17:21] LABS: SYNOVIAL FLUID APPEARANCE CLOUDY; SYNOVIAL FLUID COLOR RED
[2018-04-06 17:25] LABS: C-REACTIVE PROTEIN 13.4 mg/dL (0.0-0.9)
[2018-04-06] MEDS ORDERED: ULTRAM 50MG TAB50 MG PO (17:39)
[2018-04-06 19:15] VITALS: BP 127/65; PULSE 70
== END 2018-04-06 19:16 | disposition home or self-care (01) ==
LOC: COL.ER 15:34
PROVIDERS: Emergency Medicine
DX: M17.12 Unilateral primary osteoarthritis, left knee (principal); I12.0 Hypertensive chronic kidney disease with stage 5 chronic kidney disease or end stage renal disease; N18.6 End stage renal disease; Z99.2 Dependence on renal dialysis; Z79.82 Long term (current) use of aspirin

== ENCOUNTER 2018-04-09 13:32 | Emergency (ER) | payer MEDICARE, MEDICAID ==
[~2018-04-09] VITALS: Ht 165.1 cm; Wt 72.7 kg
[2018-04-09 13:35] VITALS: TEMP 97.7
[2018-04-09 14:14] LABS: BASO % 0.3 % (0.0-2.0); EOS % 0.1 % (0-4.0); GRAN # 6.1 (1.4-6.5); GRAN % 84.1 % (42.2-75.2); LYMPH # 0.3 (1.2-3.4); MEAN CELL VOLUME 102 fl (80.0-100.0); MEAN CORPUSCULAR HGB CONC 31 g/dl (33.0-37.0); MEAN PLATELET VOLUME 8.9 fl (7.4-10.4); MONO # 0.8 (0.1-0.6); MONO % 10.8 % (1.7-9.3); PLATELET COUNT 284 K/mm3 (130-400); RED BLOOD COUNT 2.74 M/mm3 (4.10-5.30); REDCELL DISTRIBUTION WIDTH-CV 16.7 % (11.5-14.5)
[2018-04-09 14:16] LABS: HEMATOCRIT 27.9 % (37.0-47.0); HEMOGLOBIN 8.7 g/dl (12.5-16.0); MEAN CORPUSCULAR HEMOGLOBIN 32 pg (27.0-31.0)
[2018-04-09 14:22] LABS: ALBUMIN 3.3 gm/dL (3.5-5.0); BILIRUBIN,TOTAL 0.4 mg/dL (0.0-1.0); CALCIUM 8.8 mg/dL (8.4-10.2); CREATININE, serum 1.59 mg/dL (0.52-1.25); MAGNESIUM 2.1 mg/dL (1.6-2.3); PHOSPHOROUS 2.5 mg/dL (2.5-4.5); POTASSIUM 3.6 mmol/L (3.4-5.0); TOTAL PROTEIN 6.1 gm/dL (6.4-8.2)
[2018-04-09 15:30] VITALS: BP 98/59; PULSE 80
== END 2018-04-09 15:31 | disposition home or self-care (01) ==
LOC: COL.ER 13:32
PROVIDERS: Emergency Medicine
DX: I95.9 Hypotension, unspecified (principal); Z79.82 Long term (current) use of aspirin

== ENCOUNTER 2018-06-16 08:10 | Inpatient (IN) | payer MEDICARE, MEDICAID ==
[~2018-06-16] VITALS: Ht 165.1 cm; Wt 68.4 kg
--- NOTE | 2018-06-17 15:11 | NUR ---
KRISTEL met with the patient to discuss discharge plan. The patient resides at [facility] for long-term [facility] and the patient reports that she would like to return back there upon discharge. KRISTEL presented and explained the patient choice form. The patient signed the patient choice form and she was provided a copy. KRISTEL has contacted and updated Richard at [facility]. KRISTEL to continue to follow.
[2018-06-17 16:00] VITALS: BP 132/60; BP 135/72; PULSE 65; PULSE 91; TEMP 98.2; TEMP 98.5
--- NOTE | 2018-06-17 16:00 | NUR ---
Pt resting in bed after medication and repositioning for left knee pain. Vital signs stable. Call light in reach.
[2018-06-17] MEDS ORDERED: NORCO 325 MG-51 TAB PO (16:41)
[2018-06-17 16:42] LABS: CALCIUM 7.5 mg/dL (8.4-10.2); CREATININE, serum 1.48 mg/dL (0.52-1.25); PHOSPHOROUS 2.9 mg/dL (2.5-4.5); POTASSIUM 3.4 mmol/L (3.4-5.0)
[2018-06-17] MEDS ORDERED: LASIX 80MG TABL80 MG PO (16:42)
[2018-06-17 16:45] LABS: ALBUMIN 2.3 gm/dL (3.5-5.0); BILIRUBIN,TOTAL 0.8 mg/dL (0.0-1.0); C-REACTIVE PROTEIN 8.8 mg/dL (0.0-0.9); CALCIUM 7.6 mg/dL (8.4-10.2); CREATININE, serum 2.04 mg/dL (0.52-1.25); POTASSIUM 3.7 mmol/L (3.4-5.0); TOTAL PROTEIN 5.2 gm/dL (6.4-8.2); TROPONIN-I 0.126 ng/mL (0.000-0.035)
[2018-06-17 18:02] LABS: COLLECTION METHOD CLEAN CATCH; MUCOUS Present /lpf; PH 5 (5-8); URINE APPEARANCE Cloudy; URINE BACTERIA Rare /hpf; URINE BILIRUBIN Negative (NEGATIVE); URINE BLOOD Negative (NEGATIVE); URINE COLOR Amber; URINE GLUCOSE Negative (NEGATIVE); URINE KETONE Negative (NEGATIVE); URINE LEUKOCYTE ESTERASE 2+ (NEGATIVE); URINE NITRATE Negative (NEGATIVE); URINE PROTEIN(semi-quant) Negative (NEGATIVE)
[2018-06-17 18:03] LABS: HEMATOCRIT 28.3 % (37.0-47.0); HEMOGLOBIN 8.6 g/dl (12.5-16.0); MEAN CELL VOLUME 103 fl (80.0-100.0); MEAN CORPUSCULAR HEMOGLOBIN 31 pg (27.0-31.0); MEAN CORPUSCULAR HGB CONC 30 g/dl (33.0-37.0); MEAN PLATELET VOLUME 9.1 fl (7.4-10.4); PLATELET COUNT 256 K/mm3 (130-400); RED BLOOD COUNT 2.74 M/mm3 (4.10-5.30); REDCELL DISTRIBUTION WIDTH-CV 20.1 % (11.5-14.5)
--- NOTE | 2018-06-17 19:13 | NUR ---
report given to KYLEIGH Anderson. Pt to bedside commode with x2 assist. Pt used walker, steady gait.
[2018-06-17 20:00] VITALS: BP 107/46; PULSE 72; TEMP 97.4
[2018-06-18] VITALS (177 sets, daily range): BP systolic 113–124; BP diastolic 52–96; PULSE 67–80; TEMP 98.4–9837; O2SAT 92–100
--- NOTE | 2018-06-18 07:05 | NUR ---
Bedside report received from KYLEIGH Anderson. Patient has no c/o at this time. VS WNL. Will continue to monitor.
[2018-06-18 09:12] LABS: ALBUMIN 2.2 gm/dL (3.5-5.0); CALCIUM 7.7 mg/dL (8.4-10.2); CREATININE, serum 2.1 mg/dL (0.52-1.25); PHOSPHOROUS 3.5 mg/dL (2.5-4.5); POTASSIUM 3.5 mmol/L (3.4-5.0)
--- NOTE | 2018-06-18 10:15 | NUR ---
Patient goes to dialysis at this time
[2018-06-18 10:25] LABS: MEAN CELL VOLUME 104 fl (80.0-100.0); MEAN CORPUSCULAR HGB CONC 30 g/dl (33.0-37.0); MEAN PLATELET VOLUME 9.1 fl (7.4-10.4); PLATELET COUNT 232 K/mm3 (130-400); RED BLOOD COUNT 2.67 M/mm3 (4.10-5.30); REDCELL DISTRIBUTION WIDTH-CV 19.9 % (11.5-14.5)
[2018-06-18 10:33] LABS: HEMATOCRIT 27.8 % (37.0-47.0); HEMOGLOBIN 8.3 g/dl (12.5-16.0); MEAN CORPUSCULAR HEMOGLOBIN 31 pg (27.0-31.0)
[2018-06-18 11:13] LABS: BAND 3 % (0-10); LYMPHOCYTE 6 % (20.0-51.0); NEUTROPHILS 84 % (42.0-75.2); PLATELET ESTIMATE NORMAL (NORMAL)
[2018-06-18 11:14] LABS: ANISOCYTOSIS 1+; HYPOCHROMIA 1+
--- NOTE | 2018-06-18 12:42 | NUR ---
Report called to KYLEIGH Alvarado on Medical floor. Patient will go to room 319 after dialysis is finished.
--- NOTE | 2018-06-18 14:00 | NUR ---
Received patient from dialysis per w/c. Complained of mild nausea. Transferred to bed with walker and two staff assist. Complained of pain in left knee with activity. Hurley given per request. No c/o chest pain. Telemetry intact. Lungs clear. Abdomen soft with active bowel sounds.
--- NOTE | 2018-06-18 18:00 | NUR ---
Resting in bed. States doesn't have much appetite.
--- NOTE | 2018-06-18 20:00 | NUR ---
Shift assessment complete. Patient a/o x3, in bed. Patient c/o 8/10 pain in left knee. Prn pain medication given. INT flushed, patent. Patient denies further needs, will continue to assess.
--- NOTE | 2018-06-19 00:50 | NUR ---
Patient lying in bed, supine. Heels floated, per pt request. Patient c/o 07/27, denies need for pain medication. Will reassess.
[2018-06-19 01:02] VITALS: BP 120/42; PULSE 76; TEMP 99.2
[2018-06-19 04:00] VITALS: BP 117/45; PULSE 75; TEMP 98.9
--- NOTE | 2018-06-19 04:11 | NUR ---
Patient lying in bed, supine. C/o 4/10 pain in left knee, declines medication. Will continue to assess.
[2018-06-19 06:35] LABS: CALCIUM 7.4 mg/dL (8.4-10.2); CREATININE, serum 1.64 mg/dL (0.52-1.25); PHOSPHOROUS 2.6 mg/dL (2.5-4.5)
[2018-06-19 08:04] VITALS: BP 113/43; PULSE 74; TEMP 99.1
--- NOTE | 2018-06-19 08:29 | NUR ---
Assessment complete.patient awake,a/ox3.rates pain to left knee at 3/10.LSCTA.breathing even and unlabored.VSS.patient on Room air.1+ edema to BLE.dialysis catheter to Right chest.INT to RAC.patient denies any needs at this time.call light in reach
[2018-06-19 11:43] VITALS: BP 120/47; PULSE 70; TEMP 98.3
[2018-06-19 16:31] VITALS: BP 107/50; PULSE 77; TEMP 98.5
--- NOTE | 2018-06-19 18:58 | NUR ---
pt has had an unevenful day.breathing even and unlabored.VSS.c/o poor appetite.encouraged to eat.Blood sugars stable.prn [place] given x1 this shift for left knee pain.will continue to monitor.call light in reach
[2018-06-19 19:32] VITALS: BP 104/40; PULSE 81; TEMP 98.9
[2018-06-20 00:23] VITALS: BP 114/48; PULSE 77; TEMP 98.4
--- NOTE | 2018-06-20 01:00 | NUR ---
Patient assessed around 2214. Alert and oriented, and able to make needs known. Complained of pain to left knee, and was given PRN pain medication at that time. LS CTA. Respirations are even and unlabored. Heart with regular rate and rhythm. Capillary refill less than 3 seconds. Non-tenting skin turgor. Pedal and radial pulses present and equal bilareally. Red/purple bruising to right hand and right forearm from IV access. Dialysis catheter to right chest. Gauze and tegaderm over area. Denies pain and discomfort to area. Site is without redness, warmth, and drainage. Peripheral IV to right AC. Patent, and withotu redness, warmth, and drainage. BLE have brown discoloration from knees to toes . Left knee is swollen compared to right knee, and warm to touch. Patient reports this is not new for her, that it has been ortiz on. Mepilex to left lateral foot for skin protection to bony prominence. Staff assists patient with repositioning during rounds. Redness to bottom is blanchable. Denies having pain and discomfort to area. Resting in bed with eyes closed at this time. Call light is within reach.
[2018-06-20 04:38] VITALS: BP 120/48; PULSE 81; TEMP 98.8
[2018-06-20 06:07] LABS: BASO % 0.3 % (0.0-2.0); EOS # 0.1 (0.0-0.7); EOS % 0.9 % (0-4.0); GRAN # 5.4 (1.4-6.5); GRAN % 80.5 % (42.2-75.2); LYMPH # 0.6 (1.2-3.4); LYMPH % 8.7 % (20.0-51.0); MEAN CELL VOLUME 105 fl (80.0-100.0); MEAN CORPUSCULAR HGB CONC 31 g/dl (33.0-37.0); MEAN PLATELET VOLUME 9.2 fl (7.4-10.4); MONO # 0.6 (0.1-0.6); MONO % 8.4 % (1.7-9.3); PLATELET COUNT 201 K/mm3 (130-400); RED BLOOD COUNT 2.41 M/mm3 (4.10-5.30); REDCELL DISTRIBUTION WIDTH-CV 20.1 % (11.5-14.5)
[2018-06-20 06:10] LABS: HEMATOCRIT 25.2 % (37.0-47.0); HEMOGLOBIN 7.8 g/dl (12.5-16.0); MEAN CORPUSCULAR HEMOGLOBIN 32 pg (27.0-31.0)
[2018-06-20 06:19] LABS: CALCIUM 7.3 mg/dL (8.4-10.2); CREATININE, serum 1.93 mg/dL (0.52-1.25); PHOSPHOROUS 2.9 mg/dL (2.5-4.5); POTASSIUM 3.4 mmol/L (3.4-5.0)
--- NOTE | 2018-06-20 06:37 | NUR ---
Patient reports PRN pain medication helped her throughout the night and was able to get some rest. Assisted to the commode with two assist with the use of walker and gait belt. Patient did well. Continent of bladder, no bowel movement. Assisted back to bed as requested. Voices no other needs or concerns at this time. Resting in bed. Call light is within reach.
--- NOTE | 2018-06-20 07:20 | NUR ---
Report received from KYLEIGH Reich.
--- NOTE | 2018-06-20 08:00 | NUR ---
Assessment completed. Pt A/O x4. Pt c/o of pain in left knee. Pt eating breakfast at this time. Call light in reach.
[2018-06-20 08:40] VITALS: BP 121/52; PULSE 85; TEMP 98.7
--- NOTE | 2018-06-20 10:16 | NUR ---
Report given to KYLEIGH Espinal.
--- NOTE | 2018-06-20 11:24 | NUR ---
Follow-up visit; Patient states she is feeling discouraged. Operations Manager Station listened and helped patient find some humor. Gerardo thanked Operations Manager Station for looking in on her and keeping her in Operations Manager Station's prayers.
[2018-06-20 12:47] VITALS: BP 127/51; PULSE 73; TEMP 97.9
--- NOTE | 2018-06-20 13:49 | NUR ---
KRISTEL contacted and faxed updates to [facility]. SW to continue to follow.
[2018-06-20 16:17] VITALS: BP 122/55; PULSE 80; TEMP 98.8
--- NOTE | 2018-06-20 18:41 | NUR ---
Since taking over cares the pt has been resting on and off. She has had intermittent pain in her L knee. Pt is sitting up in the bed waiting for her dinner to arrive and she denies further needs. Call light within reach.
--- NOTE | 2018-06-20 19:32 | NUR ---
Report given to KYLEIGH Hughes.
[2018-06-20 20:00] VITALS: BP 119/50; PULSE 73; TEMP 98.4
--- NOTE | 2018-06-20 20:30 | NUR ---
Shift assessment complete. Pt resting in bed, awake, a&o, cooperative c cares. Pt c/o increased pain to L knee; will give additional pain medication at HS per pt request. Pt denies other c/o. INT patent. HD cath noted to chest, s complication. Pt denies needs. Call light in reach, will monitor.
[2018-06-21 00:20] VITALS: BP 114/50; PULSE 70; TEMP 97.6
[2018-06-21 06:16] LABS: MEAN CELL VOLUME 102 fl (80.0-100.0); MEAN CORPUSCULAR HGB CONC 31 g/dl (33.0-37.0); MEAN PLATELET VOLUME 8.9 fl (7.4-10.4); PLATELET COUNT 185 K/mm3 (130-400); RED BLOOD COUNT 2.48 M/mm3 (4.10-5.30)
[2018-06-21 06:19] LABS: HEMATOCRIT 25.4 % (37.0-47.0); HEMOGLOBIN 7.9 g/dl (12.5-16.0); MEAN CORPUSCULAR HEMOGLOBIN 32 pg (27.0-31.0)
[2018-06-21 06:28] LABS: CALCIUM 7.4 mg/dL (8.4-10.2); CREATININE, serum 2.17 mg/dL (0.52-1.25); PHOSPHOROUS 3.7 mg/dL (2.5-4.5); POTASSIUM 3.4 mmol/L (3.4-5.0)
[2018-06-21 06:58] LABS: ANISOCYTOSIS 1+; EOSINOPHIL 1 % (0-4); LYMPHOCYTE 11 % (20.0-51.0); NEUTROPHILS 87 % (42.0-75.2); PLATELET ESTIMATE NORMAL (NORMAL)
--- NOTE | 2018-06-21 07:30 | NUR ---
Pt sleeping in bed. Assessment complete. Lungs deminished in lower lobes bilaterally. No SOB noted at rest. Incontinent care provided. Small wound at coccyx. Provided barrier ointment to the area. INT CDI no redness.
[2018-06-21 08:24] VITALS: BP 115/57; PULSE 68
--- NOTE | 2018-06-21 09:30 | NUR ---
Routine morning meds given. Pt reports left knee pain 07/27. Pt denies need for pain medication at this time. CMS CKS WNL to bilat lower extremities.
--- NOTE | 2018-06-21 11:00 | NUR ---
Pain rated 7/10 to left knee and right foot. PO pain med initiated at pt request. CMS CKS WNL BLE.
--- NOTE | 2018-06-21 11:00 | NUR ---
This nurse will take over cares for patient. Pt is laying in bed upon entry, she is A/O x3. Student nurse is administering pain medications for pain to L knee 10/26. Left knee more swollen than right. Bilateral legs elevated on pillow. Pt denies N/V. Dialysis catheter to R chest CDI. POC discussed with patient who verbalizes understanding. No further needs at this time. Call light within reach.
--- NOTE | 2018-06-21 11:17 | NUR ---
SW student faxed update to [facility]. Doctor plans to discharge tomorrow.
--- NOTE | 2018-06-21 12:17 | NUR ---
Pt wheeled down to dialysis at this time.
[2018-06-21 15:48] VITALS: BP 125/59; PULSE 66; TEMP 98.8
--- NOTE | 2018-06-21 15:59 | NUR ---
Pt arrived back from dialysis at this time.
[2018-06-21 19:05] VITALS: BP 122/45; PULSE 67; TEMP 98.3
--- NOTE | 2018-06-21 20:45 | NUR ---
Shift assessment complete. Pt resting in bed, awake, a&o, cooperative c cares. Pt reports continued chronic pain to L knee; PRN pain meds admin per pt request. INT patent. Pt denies other needs. Call light in reach, will monitor.
[2018-06-21 23:16] VITALS: BP 122/44; PULSE 68; TEMP 99.1
[2018-06-22 03:00] VITALS: BP 107/49; PULSE 67; TEMP 97.7
--- NOTE | 2018-06-22 07:05 | NUR ---
Pt resting in bed, condition unchanged. Pt has rested well this shift c few needs. Pain well controlled c PRN pain meds upon pt request. No needs at this time. Call light in reach.
--- NOTE | 2018-06-22 07:15 | NUR ---
Pt awake 3 person assist to toilet. Ambulated approx 200 ft. Pt tolerated activity well. Assessment complete as charted. INT in left forearm intact no reddness.
[2018-06-22 07:26] LABS: MEAN CELL VOLUME 105 fl (80.0-100.0); MEAN CORPUSCULAR HGB CONC 31 g/dl (33.0-37.0); MEAN PLATELET VOLUME 9.5 fl (7.4-10.4); PLATELET COUNT 188 K/mm3 (130-400); RED BLOOD COUNT 2.66 M/mm3 (4.10-5.30); REDCELL DISTRIBUTION WIDTH-CV 20.2 % (11.5-14.5)
[2018-06-22 07:27] LABS: HEMATOCRIT 27.8 % (37.0-47.0); HEMOGLOBIN 8.5 g/dl (12.5-16.0); MEAN CORPUSCULAR HEMOGLOBIN 32 pg (27.0-31.0)
[2018-06-22 07:52] LABS: CALCIUM 7.3 mg/dL (8.4-10.2); CREATININE, serum 1.52 mg/dL (0.52-1.25); POTASSIUM 3.7 mmol/L (3.4-5.0)
[2018-06-22 08:48] VITALS: BP 98/62; PULSE 80
[2018-06-22 09:30] LABS: BAND 25 % (0-10); EOSINOPHIL 2 % (0-4); LYMPHOCYTE 9 % (20.0-51.0); NEUTROPHILS 57 % (42.0-75.2); PLATELET ESTIMATE NORMAL (NORMAL)
[2018-06-22 09:31] LABS: ANISOCYTOSIS 2+
--- NOTE | 2018-06-22 09:49 | NUR ---
Patient alert and oriented, answers questions appropriately. See assessment. C/o lightheadedness and nausea/vertigo. Manual BP obtained, see flowsheet. BG 64, orange juice with sugar given. BG increased to 108 fifteen minutes after orange juice consumption. No other c/o at this time.
--- NOTE | 2018-06-22 09:55 | NUR ---
Follow-up visit; Gerardo having a difficult morning and yet hopes to be discharged soon. [employer] Driver continues to keep Gerardo in her prayers and wished her a better rest of the day.
[2018-06-22 10:00] VITALS: BP 98/62; PULSE 72
--- NOTE | 2018-06-22 10:00 | NUR ---
Pt reports drowsiness. Manual BP 98/62. Pt refused brakfast d/t nausea. Primary nurse notified. Pt resting in bed. Assessment unchanged.
[2018-06-22 11:16] VITALS: BP 110/68; PULSE 66; TEMP 97.7
--- NOTE | 2018-06-22 11:20 | NUR ---
Pt resting in bed. Assessment unchanged. BP 110/68. Total input 150 mL. Report off to nurse.
[2018-06-22] MEDS ORDERED: MONODOX100 PO (12:35)
[2018-06-22] MEDS ORDERED: MIRALAX PA17 GM/Dose PO (12:35)
--- NOTE | 2018-06-22 13:28 | NUR ---
Patient is dc to [facility] for [facility] prior to returning to [facility] care. SW faxed discharge orders to [facility] and set up transport via wheelchair van for 2:45pm.
[2018-06-22 14:22] VITALS: BP 110/68; PULSE 66; TEMP 97.7
--- NOTE | 2018-06-22 14:39 | NUR ---
SW student provided an IM form for the patient and explained the contents. Patient was agreeable and signed. Original placed on chart.
--- NOTE | 2018-06-22 15:16 | NUR ---
Patient discharged to [facility] with transporation staff at 1515. Report called.
== END 2018-06-22 15:30 | DRG 280 ==
LOC: COL.ER 08:10 → ICU 15:00 → MEDICAL 15:00 → ICU 06-18 12:48 → MEDICAL 06-18 19:00 → EDSTATUS 06-23 06:11
PROVIDERS: Internal Medicine Nephrology; ADMIT Internal Medicine
PROC: 5A1D70Z Performance of Urinary Filtration, Intermittent, Less than 6 Hours Per Day (ICD-10-PCS; principal; 2018-06-16)
PROC: 5A1D70Z Performance of Urinary Filtration, Intermittent, Less than 6 Hours Per Day (ICD-10-PCS; 2018-06-18)
PROC: 5A1D70Z Performance of Urinary Filtration, Intermittent, Less than 6 Hours Per Day (ICD-10-PCS; 2018-06-21)
DX: I21.4 Non-ST elevation (NSTEMI) myocardial infarction (principal); N18.6 End stage renal disease; I12.0 Hypertensive chronic kidney disease with stage 5 chronic kidney disease or end stage renal disease; T84.54XA Infection and inflammatory reaction due to internal left knee prosthesis, initial encounter; Z99.2 Dependence on renal dialysis; I25.10 Atherosclerotic heart disease of native coronary artery without angina pectoris; Z95.5 Presence of coronary angioplasty implant and graft; Z79.01 Long term (current) use of anticoagulants; Z95.2 Presence of prosthetic heart valve; E78.5 Hyperlipidemia, unspecified; D63.1 Anemia in chronic kidney disease; I48.91 Unspecified atrial fibrillation
CPT/HCPCS: A9500; J2785; J2916

== ENCOUNTER 2018-06-23 15:51 | Inpatient (IN) | payer MEDICARE, MEDICAID ==
[~2018-06-23] VITALS: Ht 165.1 cm; Wt 77.4 kg
[~2018-06-23 15:51] MED LIST changes: +LASIX 80MG TABL80 MG PO; +MONODOX100 PO; +NORCO 325 MG-51 TAB PO
[2018-07-11 09:16] VITALS: BP 110/63; PULSE 81; TEMP 98.1
[2018-07-11 10:52] LABS: MEAN CELL VOLUME 107 fl (80.0-100.0); MEAN CORPUSCULAR HGB CONC 30 g/dl (33.0-37.0); MEAN PLATELET VOLUME 9.3 fl (7.4-10.4); PLATELET COUNT 169 K/mm3 (130-400); RED BLOOD COUNT 2.45 M/mm3 (4.10-5.30); REDCELL DISTRIBUTION WIDTH-CV 18.1 % (11.5-14.5)
[2018-07-11 10:54] LABS: HEMATOCRIT 26.2 % (37.0-47.0); HEMOGLOBIN 7.9 g/dl (12.5-16.0); MEAN CORPUSCULAR HEMOGLOBIN 32 pg (27.0-31.0)
[2018-07-11 11:00] LABS: INR 1.1 (0.8-3.0); PROTHROMBIN TIME 12.5 SECONDS (9.7-12.8)
--- NOTE | 2018-07-11 11:23 | NUR ---
PT ADMITTED TO ROOM 346 PER WHEEL CHAIR THEN WENT TO DIALYSIS BY BED @ 1015.
[2018-07-11 12:01] LABS: BAND 5 % (0-10); LYMPHOCYTE 6 % (20.0-51.0); NEUTROPHILS 85 % (42.0-75.2); PLATELET ESTIMATE NORMAL (NORMAL)
--- NOTE | 2018-07-11 12:48 | NUR ---
PATIENT HAS DIALYSIS FISTULA TO R UPPER CHEST.
[2018-07-11 14:48] LABS: IRON,SERUM 24 ug/dL (35-150)
[2018-07-11 14:57] LABS: TOTAL IRON BINDING CAPACITY 117 ug/dL (265-497)
[2018-07-11 15:24] LABS: FERRITIN 937 ng/mL (11-264)
--- NOTE | 2018-07-11 15:41 | NUR ---
CONTACTED IV SERVICES PER PT REQUEST FOR IV START. SHE WILL START ON DAY OF SURGERY. NO IV MEDS AT THIS TIME.
--- NOTE | 2018-07-11 19:04 | NUR ---
REPORT TO SHANTELL ARIZMENDI.
[2018-07-11 20:18] VITALS: BP 106/50; PULSE 65; TEMP 98.1
--- NOTE | 2018-07-11 22:00 | NUR ---
ASSUMED CARE OF PATIENT FOR NIGHTSHIFT. ASSESSMENT COMPLETE. VS STABLE. NOTED TO HAVE A SMALL OPEN AREA TO COCCYX, APPROX 3CM IN SIZE-RESEMBLING A SKIN TEAR. SIGNIFICANT SWELLING IN LEFT KNEE-ELEVATED ON PILLOW. TEACHING COMPLETE ON NPO AFTER MIDNIGHT. VERBALIZES UNDERSTANDING. CALL LIGHT WITHIN REACH. BED IN LOW POSITION-WHEELS LOCKED. ENCOURAGED TO CALL FOR QUESTIONS OR CONCERNS. VERBALIZES UNDERSTANDING. WILL MONITOR.
[2018-07-12] VITALS (201 sets, daily range): BP systolic 63–128; BP diastolic 39–66; PULSE 58–559; TEMP 96.5–98.1; O2SAT 35–100
[2018-07-12 06:10] LABS: BASO % 0.6 % (0.0-2.0); EOS % 0.6 % (0-4.0); GRAN # 3.5 (1.4-6.5); GRAN % 75.2 % (42.2-75.2); LYMPH # 0.6 (1.2-3.4); LYMPH % 13.2 % (20.0-51.0); MEAN CELL VOLUME 109 fl (80.0-100.0); MEAN CORPUSCULAR HGB CONC 30 g/dl (33.0-37.0); MEAN PLATELET VOLUME 9.4 fl (7.4-10.4); MONO # 0.4 (0.1-0.6); MONO % 9.5 % (1.7-9.3); PLATELET COUNT 174 K/mm3 (130-400); RED BLOOD COUNT 2.31 M/mm3 (4.10-5.30); REDCELL DISTRIBUTION WIDTH-CV 18.4 % (11.5-14.5)
[2018-07-12 06:20] LABS: HEMATOCRIT 25.2 % (37.0-47.0); HEMOGLOBIN 7.5 g/dl (12.5-16.0); MEAN CORPUSCULAR HEMOGLOBIN 32 pg (27.0-31.0)
--- NOTE | 2018-07-12 06:25 | NUR ---
RESTED FOR MOST OF NIGHT WITH C/O KNEE PAIN X1. PLAN OF CARE DISCUSSED FOR SURGERY TODAY. HAS BEEN NPO AFTER MIDNIGHT WITH SIP OF WATER WITH AM PILLS. HEEL PROTECTORS ON ELEVATED ON PILLOWS. CALL LIGHT WITHIN REACH. BED IN LOW POSITION AND LOCKED. DENIES ANY OTHER QUESTIONS OR CONCERNS. WILL MONITOR.
[2018-07-12 06:32] LABS: ALBUMIN 1.9 gm/dL (3.5-5.0); BILIRUBIN,TOTAL 0.2 mg/dL (0.0-1.0); CALCIUM 7.4 mg/dL (8.4-10.2); POTASSIUM 3.8 mmol/L (3.4-5.0); TOTAL PROTEIN 4.4 gm/dL (6.4-8.2)
--- NOTE | 2018-07-12 09:34 | NUR ---
Arely up to try and place peripheral IV, unable to place. Paged Dr. Mo.
--- NOTE | 2018-07-12 10:18 | NUR ---
Dr. Mo in to see patient. Would like Arely from PICC attempt peripheral IV prior to attempting PICC. If unable to place, procede with PICC line.
--- NOTE | 2018-07-12 11:30 | NUR ---
First visit from the bean snapper. prayed with patient. No other needs right now.
[2018-07-12 16:00] LABS: HEMATOCRIT 26.2 % (37.0-47.0); HEMOGLOBIN 8.1 g/dl (12.5-16.0)
--- NOTE | 2018-07-12 16:12 | NUR ---
SW attempted to meet with the patient to discuss discharge plan and to complete the 30 day re-admit interview. The patient is in surgery and then will transfer down to ICU. The patient resides at [facility] for long-term [facility] and came in for a scheduled surgery. SW will need to follow up with the patient to confirm discharge plan and complete the 30 day re-admit interview.
--- NOTE | 2018-07-12 16:15 | NUR ---
PATIENT ARRIVED TO ICU ROOM 5 FROM SURGERY. SHE IS GROGGY, YET WAKES UP AND ANSWERS QUESTIONS APPROPRIATE. BP LOW. ALL OTHER VITAL SIGNS ARE STABLE AT THIS TIME. BLOOD GLUCOSE IS ALSO LOW. DR. KUNZ CALLED AND ORDERS RECEIVED FOR D51/2 NS AT 100 ML FOR 1 LITER.
--- NOTE | 2018-07-12 19:00 | NUR ---
REPORT GIVEN TO KYLEIGH BRITTON.
--- NOTE | 2018-07-12 19:44 | NUR ---
Patient resting in bed, assessment completed and charted at this time. Patient still remains drowsy, encouraged to eat at this time. Will continue to monitor and assess.
[2018-07-13] VITALS (446 sets, daily range): BP systolic 89–120; BP diastolic 43–68; PULSE 60–75; TEMP 97.7–98.9; O2SAT 44–100
[2018-07-13 05:50] LABS: MEAN CORPUSCULAR HGB CONC 31 g/dl (33.0-37.0); MEAN PLATELET VOLUME 9.5 fl (7.4-10.4); PLATELET COUNT 156 K/mm3 (130-400); RED BLOOD COUNT 3.16 M/mm3 (4.10-5.30)
[2018-07-13 06:01] LABS: BILIRUBIN,TOTAL 0.5 mg/dL (0.0-1.0); CALCIUM 7.4 mg/dL (8.4-10.2); CREATININE, serum 2.4 mg/dL (0.52-1.25); POTASSIUM 3.7 mmol/L (3.4-5.0); TOTAL PROTEIN 4.7 gm/dL (6.4-8.2)
[2018-07-13 06:21] LABS: HEMATOCRIT 31.3 % (37.0-47.0); HEMOGLOBIN 9.7 g/dl (12.5-16.0); MEAN CELL VOLUME 99 fl (80.0-100.0); MEAN CORPUSCULAR HEMOGLOBIN 31 pg (27.0-31.0)
--- NOTE | 2018-07-13 07:11 | NUR ---
Report received from Trey ARIZMENDI and care resumed. Pt resting quietly at this time. Will continue to follow.
[2018-07-13 09:06] LABS: BAND 32 % (0-10); NEUTROPHILS 66 % (42.0-75.2); PLATELET ESTIMATE NORMAL (NORMAL)
--- NOTE | 2018-07-13 09:24 | NUR ---
Dr Mo in to see pt at this time. Orders clarified.
--- NOTE | 2018-07-13 11:17 | NUR ---
SW student attempted to meet with patient to complete assessment. Patient has been resting all morning. SW student attempted to ask a few questions. Patient nodded when asked if she was from [facility] but was unable to answer any other questions at this time due to being drowsy and not alert. SW to try again later this afternoon.
--- NOTE | 2018-07-13 14:54 | NUR ---
Dr Shepard in to see pt at this time. Spoke with him about Dr Penny's concerns for restarting Brilinta. Also spoke with pharmacy about med/dosage options. [place] will do some research and let us know options for both DVT coverage as well as cardiac with the smallest risk of bleeding.
--- NOTE | 2018-07-13 16:02 | NUR ---
SW contacted patients brother and DPOA Ky Biggs as patient has not been waking up all day. He gives verbal consent for patient to return to [facility], choice form placed on chart. Her PCP is Dr Plasencia and she obtains her medications from [facility]. She lives at [facility] in long term care but will be returning skilled care for therapy. KRISTEL will continue to follow and continue to update via [facility].
--- NOTE | 2018-07-13 19:32 | NUR ---
Report given to Monica ARIZMENDI and care transfered.
[2018-07-14] VITALS: BP 97/48; PULSE 60
[2018-07-14 04:00] VITALS: BP 94/50; PULSE 62
[2018-07-14 05:21] LABS: VANCOMYCIN,RANDOM 14.61 ug/mL
[2018-07-14 05:38] LABS: ALBUMIN 1.7 gm/dL (3.5-5.0); BILIRUBIN,TOTAL 0.4 mg/dL (0.0-1.0); CALCIUM 7.3 mg/dL (8.4-10.2); CREATININE, serum 2.94 (0.52-1.25); POTASSIUM 4.2 mmol/L (3.4-5.0)
--- NOTE | 2018-07-14 06:58 | NUR ---
LAB CONTACTED REGARDING CANCELLED LABS. LAB ON THE WAY TO REDRAW.
[2018-07-14 07:20] LABS: BASO % 0.2 % (0.0-2.0); EOS % 0.1 % (0-4.0); GRAN # 7.3 (1.4-6.5); GRAN % 87.4 % (42.2-75.2); LYMPH # 0.5 (1.2-3.4); LYMPH % 5.5 % (20.0-51.0); MEAN CELL VOLUME 100 fl (80.0-100.0); MEAN CORPUSCULAR HGB CONC 31 g/dl (33.0-37.0); MEAN PLATELET VOLUME 9.7 fl (7.4-10.4); MONO # 0.5 (0.1-0.6); PLATELET COUNT 136 K/mm3 (130-400); RED BLOOD COUNT 2.66 M/mm3 (4.10-5.30); REDCELL DISTRIBUTION WIDTH-CV 22.5 % (11.5-14.5)
--- NOTE | 2018-07-14 07:20 | NUR ---
Report received from Monica ARIZMENDI and care resumed.
[2018-07-14 07:22] LABS: HEMATOCRIT 26.6 % (37.0-47.0); HEMOGLOBIN 8.3 g/dl (12.5-16.0); MEAN CORPUSCULAR HEMOGLOBIN 31 pg (27.0-31.0)
[2018-07-14 08:00] VITALS: BP 90/47; PULSE 59; TEMP 97.6
--- NOTE | 2018-07-14 08:20 | NUR ---
Pt taken back to [facility] for dialysis by bed at this time.
--- NOTE | 2018-07-14 11:50 | NUR ---
Pt returned from dialysis and placed back on monitor. Pt's BP remains labile with SBP 70-90. Dr Mo states pt will remain in ICU due to this but no need to call for low BP as long as pt is not symptomatic. He states pt's BP is chronically low. Pt denies any pain or concerns at this time. Was offered food but refused. Pt was willing to drink some of Glucerna shake. Will continue to follow.
[2018-07-14 12:48] VITALS: BP 79/60; PULSE 59; TEMP 97.9
--- NOTE | 2018-07-14 13:24 | NUR ---
SW asked nurse for PT/OT consult. She reports she will talk to ortho to see if she is able to work with them. Updates faxed to [facility].
[2018-07-14 16:00] VITALS: BP 74/42; PULSE 67; TEMP 98.1
--- NOTE | 2018-07-14 18:26 | NUR ---
Pt remains resting at this time. No concerns will continue to follow.
--- NOTE | 2018-07-14 19:08 | NUR ---
Report given to Lm ARIZMENDI and care transfered.
[2018-07-14 20:00] VITALS: BP 85/51; PULSE 66; TEMP 99.1
--- NOTE | 2018-07-14 20:00 | NUR ---
Shift assessment complete at this time. Plan of care reviewed at bedside with patient. Additional time taken to address any other needs or concerns. Vitals stable at this time. Denies pain or any other discomfort. Will continue to monitor.
[2018-07-15] VITALS (9 sets, daily range): BP systolic 85–121; BP diastolic 45–838; PULSE 61–72; TEMP 97.4–98.5; O2SAT 89–92
--- NOTE | 2018-07-15 | NUR ---
Pt sleeping comfotably in bed. Reports tolerable pain in L Knee and declines any further intervention. Vitals stable at this time. Pt denies any other discomforts. Will continue to monitor.
--- NOTE | 2018-07-15 04:00 | NUR ---
Pt sleeping comfortably in bed. Reports pain in L Knee and declines any further intervention. Vitals stable at this time. Denies any other discomfort. Will continue to monitor.
[2018-07-15 04:54] LABS: BASO % 0.4 % (0.0-2.0); EOS % 0.1 % (0-4.0); GRAN # 5.6 (1.4-6.5); GRAN % 77.5 % (42.2-75.2); HEMATOCRIT 25.9 % (37.0-47.0); LYMPH # 0.7 (1.2-3.4); LYMPH % 10.2 % (20.0-51.0); MEAN CELL VOLUME 100 fl (80.0-100.0); MEAN CORPUSCULAR HEMOGLOBIN 31 pg (27.0-31.0); MEAN CORPUSCULAR HGB CONC 31 g/dl (33.0-37.0); MEAN PLATELET VOLUME 9.6 fl (7.4-10.4); MONO # 0.8 (0.1-0.6); PLATELET COUNT 119 K/mm3 (130-400); RED BLOOD COUNT 2.58 M/mm3 (4.10-5.30); REDCELL DISTRIBUTION WIDTH-CV 22.4 % (11.5-14.5)
[2018-07-15 05:05] LABS: ALBUMIN 1.8 gm/dL (3.5-5.0); BILIRUBIN,TOTAL 0.3 mg/dL (0.0-1.0); CALCIUM 7.2 mg/dL (8.4-10.2); CREATININE, serum 2.06 (0.52-1.25); TOTAL PROTEIN 4.1 gm/dL (6.4-8.2)
--- NOTE | 2018-07-15 07:00 | NUR ---
Report received from KYLEIGH Amato.
--- NOTE | 2018-07-15 07:17 | NUR ---
Bedside report given to KYLEIGH Cortez.
--- NOTE | 2018-07-15 07:45 | NUR ---
Assessment complete, patient reports pain 6/10 to left knee, requests pain medication, given, see flowsheet. Patient has knee imbolizer in place. AM care provided. Patient denies wanting breakfast, encouraged to drink protien shake. Call light within reach.
--- NOTE | 2018-07-15 11:23 | NUR ---
Report given to KYLEIGH Leal.
--- NOTE | 2018-07-15 11:25 | NUR ---
Patient transfering to the floor today. Nurse received PT/OT orders.
--- NOTE | 2018-07-15 11:50 | NUR ---
Patient transferred to [facility] with all belongings, (wheelchair, clothes.)
--- NOTE | 2018-07-15 12:05 | NUR ---
PATIENT ARRIVED TO ROOM 344 FROM ICU. PATIENT SETTELED INTO ROOM. PATIENT DENIES ANY NEEDS AT THIS TIME.
--- NOTE | 2018-07-15 13:00 | NUR ---
SEE ASSESSMENT. PATIENT RESTING IN BED AT THIS TIME. CALL LIGHT WITHIN REACH.
--- NOTE | 2018-07-15 18:24 | NUR ---
patient sleeping in bed at this time. side rails up bilaterally. call light in reach. reported off to Mel.
--- NOTE | 2018-07-15 19:00 | NUR ---
REPORT GIVEN TO KYLEIGH SALINAS.
--- NOTE | 2018-07-15 20:20 | NUR ---
Pt. sitting up in bed at this time. Pt. is A&OX3 but forgetful. Shift assessment complete at this time. Dressing to lt. knee cdi. PICC to rt. upper arm patent. Pt. reports pain to lt. knee at a 5 on pain scale. Will give pain meds per orders. Pt. denies further needs, call light within reach.
[2018-07-16 03:39] VITALS: BP 122/74; PULSE 65; TEMP 97.6
[2018-07-16 08:54] VITALS: BP 135/65; PULSE 62; TEMP 98
[2018-07-16 11:11] LABS: MEAN CELL VOLUME 102 fl (80.0-100.0); MEAN CORPUSCULAR HGB CONC 31 g/dl (33.0-37.0); MEAN PLATELET VOLUME 9.3 fl (7.4-10.4); PLATELET COUNT 111 K/mm3 (130-400); RED BLOOD COUNT 2.73 M/mm3 (4.10-5.30); REDCELL DISTRIBUTION WIDTH-CV 21.9 % (11.5-14.5)
[2018-07-16 11:12] LABS: HEMATOCRIT 27.9 % (37.0-47.0); HEMOGLOBIN 8.6 g/dl (12.5-16.0); MEAN CORPUSCULAR HEMOGLOBIN 32 pg (27.0-31.0)
[2018-07-16 11:31] LABS: BAND 25 % (0-10); NEUTROPHILS 62 % (42.0-75.2)
[2018-07-16 11:32] LABS: ANISOCYTOSIS 2+; LYMPHOCYTE 10 % (20.0-51.0); PLATELET ESTIMATE NORMAL (NORMAL)
[2018-07-16 11:54] LABS: ALBUMIN 1.8 gm/dL (3.5-5.0); BILIRUBIN,TOTAL 0.2 mg/dL (0.0-1.0); CALCIUM 7.6 mg/dL (8.4-10.2); CREATININE, serum 1.49 (0.52-1.25); POTASSIUM 3.7 mmol/L (3.4-5.0); TOTAL PROTEIN 4.2 gm/dL (6.4-8.2)
[2018-07-16 12:08] LABS: VANCOMYCIN,RANDOM 12.24 ug/mL
[2018-07-16 16:47] VITALS: BP 114/41; PULSE 63; TEMP 98.3
[2018-07-16 19:25] VITALS: BP 108/56; PULSE 72; TEMP 98.7
--- NOTE | 2018-07-16 19:40 | NUR ---
Patient assessed at this time. Complained of pain to neck. Given PRN Lytle as requested. Double lumen midline venous access patent to left upper arm. Denies having pain and discomfort to area. Dialysis catheter site to right subclavian is without redness, warmth, swelling, and pain. Dressing to area is CDI. Patient has generalized edema everywhere. 2+ pitting BUE, 3+ pitting BLE. Knee brace to left knee is intact. Denies having pain and discomfort to left leg. Pedal pulses are faint BLE due to swelling. Mepilex foam dressing to stage 2 pressure sore on coccyx is CDI. Encouraged to reposition in bed, but refuses. Indwelling castillo catheter is patent, and draining gatito, clear urine via dependent drainage. Voices no needs or concerns at this time. Call light is within reach.
--- NOTE | 2018-07-16 23:44 | NUR ---
Patient repositioned in bed, slightly onto right side. Did not allow staff to turn any furhter. Changed in bed due to bowel incontinence. Perineal hygien care provided, as well as catheter care. Dressing to bottom remains CDI at this time. Noted red areas on back from chux pads. Chux pads removed. Blister noted to right calf area, wrapping around calf. Area covered with allevyn. Resting in bed at this time. Call light is within reach. Voices no needs or concerns at this time.
[2018-07-17] VITALS (7 sets, daily range): BP systolic 98–136; BP diastolic 42–76; PULSE 59–73; TEMP 97.5–98.8
--- NOTE | 2018-07-17 06:18 | NUR ---
Allowed staff to reposition again. Denies having pain and discomfort at this time. Restingin bed with eyes closed. Call light is within reach.
[2018-07-17 07:29] LABS: BASO % 0.3 % (0.0-2.0); EOS % 0.3 % (0-4.0); GRAN # 4.5 (1.4-6.5); GRAN % 75.3 % (42.2-75.2); LYMPH # 0.6 (1.2-3.4); LYMPH % 10.8 % (20.0-51.0); MEAN CELL VOLUME 104 fl (80.0-100.0); MEAN CORPUSCULAR HGB CONC 31 g/dl (33.0-37.0); MEAN PLATELET VOLUME 10.2 fl (7.4-10.4); MONO # 0.7 (0.1-0.6); MONO % 12.1 % (1.7-9.3); PLATELET COUNT 106 K/mm3 (130-400); RED BLOOD COUNT 2.59 M/mm3 (4.10-5.30)
[2018-07-17 07:34] LABS: HEMATOCRIT 26.9 % (37.0-47.0); HEMOGLOBIN 8.2 g/dl (12.5-16.0); MEAN CORPUSCULAR HEMOGLOBIN 32 pg (27.0-31.0)
[2018-07-17 07:38] LABS: ALBUMIN 1.9 gm/dL (3.5-5.0); BILIRUBIN,TOTAL 0.3 mg/dL (0.0-1.0); CALCIUM 7.4 mg/dL (8.4-10.2); CREATININE, serum 1.87 (0.52-1.25); POTASSIUM 3.8 mmol/L (3.4-5.0); TOTAL PROTEIN 4.3 gm/dL (6.4-8.2)
--- NOTE | 2018-07-17 11:33 | NUR ---
Patient resting in bed upon assessment. Very weak and unable to move extremities very well. Assist from staff to move above her elbows. Patient has significant edema to bilateral upper extremities that are noted to be weeping. Genitalia and facial edema noted. Bilateral lower extremities have +3 pitting edema. Able to find pulses on right foot with doppler. Noted to have slight redness under oxygen tubing on face and behind ears, but not open. Foam cushions applied. Several wounds noted throughout body upon assessment. Sites and stages are as follows; sacrum-unstageable-(purple, unblanchable, some blisters noted), bilateral ears-stage 1- (redness/blanchable), left heel-stage 1- (not blanchable, red), lateral feet-stage 1 (redness/blanchable), inner edges of right foot-stage 1 (redness/blanchable), left hip-stage 1 (redness/blanchable), right calf-unstageable- (open/graham eschar), left knee-stage II (deep purple, unblanchable). Waffle air mattress applied to bed. Allevyn heel and heel pillows applied to bilateral heels. Heels then floated with pillows. Left leg immobilizer loosened to reduce pressure to the stage II on her knee. Repositioned to right side. Educated on the importance of repositioning and staying off her coccyx. Full bed bath given, oral care provided. Lotion applied to skin. Chucks under bilateral arms to keep moisture from weeping minimal. Attempted to assist with eating, but noted to have no interest in food.
--- NOTE | 2018-07-17 12:57 | NUR ---
Spoke with who verified he wanted to continue to hold lasix & brillinta. He also verified we can complete a wound care consult.
--- NOTE | 2018-07-17 13:38 | NUR ---
Patient assisted with lunch, she had part of a chicken breast & some fresh pinnapple. She also drank a glass of water. Patient provided with pericare again & fresh dry linens. Repositioned to off load all wounds.
--- NOTE | 2018-07-17 15:18 | NUR ---
Patient repositioned, 2 assist. No stool at this time. Patient arms & heels floated.
--- NOTE | 2018-07-17 17:44 | NUR ---
Patient assisted with dinner. Patient really enjoyed the Sprite with Benjamin. She drank all of it. Patient ate about a quarter of her jaleesa cheesesteak sandwich, peas, & mac & cheese. Ordered her a magic cup wild do, she refuses shake reports being sick of them. Patient seems in better spirits this evening.
--- NOTE | 2018-07-17 19:11 | NUR ---
Patient provided with pericare. incontinent of stool. Patient repositioned in bed. Bedside report to Pasquale with all wounds shown too her.
--- NOTE | 2018-07-17 22:24 | NUR ---
Pt. sitting laying in bed at this time. Pt. is currently A&OX3. Pt. does tend to get forgetful through the night. Pt. is easily reoriented. Pt. repositioned with day shift nurses. Pericare provided at that time. Pt. has several skin ulcers. Sites reviewed with day shift nurses. See shift assessment for wound documentation. Pt. noted to have air matress and heel protectors on. Also keeping legs and arms on pillows to elevate. Pt.'s rt. hand still has pretty significant edema at a 3+. Lt. arm was slightly smaller. Will keep extremities elevated. Midline iv site to lt. arm patent, covered with an rohit wrap. Pt. denies pain or other needs at this time.
[2018-07-18] VITALS (8 sets, daily range): BP systolic 55–150; BP diastolic 25–52; PULSE 68–77; TEMP 98.2–98.6
--- NOTE | 2018-07-18 06:09 | NUR ---
Pt. slept off and on though the night. Pt. remains A&OX3 but forgetful. Midline to lt. arm patent. Pt. checked for incontinence at this time. Pt. clean and dry. Weaver catheter to DD, gatito urine noted. Pt. turned frequently though the night. Pt. currently on rt. side. Brace to lt. leg on, but loose d/t pressure ulcer to lt. knee. Pt. has heel protectors on. All extremities elevated with pillows. Pt. denies further needs at this time. Call light within reach.
[2018-07-18 06:22] LABS: BASO % 0.4 % (0.0-2.0); EOS % 0.3 % (0-4.0); GRAN # 5.7 (1.4-6.5); GRAN % 80.8 % (42.2-75.2); LYMPH # 0.7 (1.2-3.4); LYMPH % 9.8 % (20.0-51.0); MEAN CELL VOLUME 103 fl (80.0-100.0); MEAN CORPUSCULAR HGB CONC 30 g/dl (33.0-37.0); MEAN PLATELET VOLUME 10.3 fl (7.4-10.4); MONO # 0.6 (0.1-0.6); MONO % 7.8 % (1.7-9.3); PLATELET COUNT 114 K/mm3 (130-400); RED BLOOD COUNT 2.77 M/mm3 (4.10-5.30); REDCELL DISTRIBUTION WIDTH-CV 21.2 % (11.5-14.5)
[2018-07-18 06:23] LABS: HEMATOCRIT 28.5 % (37.0-47.0); HEMOGLOBIN 8.5 g/dl (12.5-16.0); MEAN CORPUSCULAR HEMOGLOBIN 31 pg (27.0-31.0)
[2018-07-18 06:34] LABS: ALBUMIN 1.8 gm/dL (3.5-5.0); BILIRUBIN,TOTAL 0.3 mg/dL (0.0-1.0); CALCIUM 7.2 mg/dL (8.4-10.2); CREATININE, serum 2.29 (0.52-1.25); TOTAL PROTEIN 4.2 gm/dL (6.4-8.2)
--- NOTE | 2018-07-18 06:35 | NUR ---
appears to be dozing, bedside shift report received from KYLEIGH Giordano
--- NOTE | 2018-07-18 08:10 | NUR ---
resting in bed, full assessment completed, see interventions for further info, has significant upper extremity edema but no weeping noted at this time, has bruising to right arm/hand, also some gacial and genital edema, has 2+ edema to bilateral feet and able to find 1+ pedal pulses, has some slight redness behind ears from O2 tubing and foam guards in place, has unstageable pressure ulcer to cocyx that is purple and unblanchable with some blistering noted, left heel has stage 1 that is red and non blanchable, lateral feet also stage 1 with redness and still somewhat blanchable, inner edges of R foot with redness and blanchable, L hip and lower flanke also with redness, left knee with aquacel dressing with drainage, has large purplish area to left knee also but unsure if this is pressure ulcer or bruusing from surgery, technol brace in place to left knee, repositioned over to left side, breakfast ordered
--- NOTE | 2018-07-18 08:45 | NUR ---
Midline intact left upper arm with sterile dressing change done with insertion site cleansed with chloraprep x 1, skin prep, stat lock, chlorhexidine impregnated disk applied, and tegaderm applied. no signs or symptoms of IV complications noted. no concerns voiced. re-wrapped with rohit to protect catheter.
--- NOTE | 2018-07-18 09:00 | NUR ---
sitting up in bed and is being assisted with eating breakfast
--- NOTE | 2018-07-18 10:20 | NUR ---
repositioned to right side, ddoes have some weeping to right upper arm during this assessment
--- NOTE | 2018-07-18 10:53 | NUR ---
Dr Jack in to see clemencia
--- NOTE | 2018-07-18 12:03 | NUR ---
assisted her with ordering lunch,
--- NOTE | 2018-07-18 13:52 | NUR ---
KRISTEL contacted and faxed updates to [facility]. SW to continue to follow.
--- NOTE | 2018-07-18 14:30 | NUR ---
awakened and repositioned to right side, states she has pain when with movement but then goes back to sleep quickly, allevyn coccyx dressing applied over coccyx unstageable ulcer
--- NOTE | 2018-07-18 18:24 | NUR ---
has been repositioned every 2 hours from right to left, c/o discomfort with movement but then goes back to dozing, has only had very few bites of foot and small amount of liquids, declines wanting anything for supper
--- NOTE | 2018-07-18 18:55 | NUR ---
bedside shift report given to KYLEIGH Giordano
--- NOTE | 2018-07-18 20:00 | NUR ---
Pt. laying in bed. Pt. is A&OX3 but can be forgetful. Midline IV site to lt. upper arm patetn. Dressing to lt. knee with some drainage. Pt. wearing brace. Pt. has several skin issues. 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 Lt. heel red non blanchable, rt. medial foot red/ blanchable. Heel protectors on and floated. Rt. calf mid calf has a pressure related wound from john hose. Lt. knee has a unstagable area, deep purple. Bilateral ears red, foam padding to O2 cannula. Upper arms are slightly wheepy, pads under arms. Pt. repositioned at this time. Pt. reports pain at a 7 on pain scale, will give pain meds per orders.
[2018-07-19 00:47] VITALS: BP 103/48; PULSE 72; TEMP 98.5
[2018-07-19 05:10] VITALS: BP 93/48; PULSE 72; TEMP 98.6
[2018-07-19 06:49] LABS: BASO % 0.3 % (0.0-2.0); EOS % 0.5 % (0-4.0); GRAN % 76.8 % (42.2-75.2); LYMPH # 0.8 (1.2-3.4); LYMPH % 12.2 % (20.0-51.0); MEAN CELL VOLUME 101 fl (80.0-100.0); MEAN CORPUSCULAR HGB CONC 31 g/dl (33.0-37.0); MONO # 0.6 (0.1-0.6); MONO % 9.3 % (1.7-9.3); PLATELET COUNT 134 K/mm3 (130-400); RED BLOOD COUNT 2.75 M/mm3 (4.10-5.30); REDCELL DISTRIBUTION WIDTH-CV 21.2 % (11.5-14.5)
[2018-07-19 06:53] LABS: HEMATOCRIT 27.8 % (37.0-47.0); HEMOGLOBIN 8.5 g/dl (12.5-16.0); MEAN CORPUSCULAR HEMOGLOBIN 31 pg (27.0-31.0)
[2018-07-19 07:15] LABS: ALBUMIN 1.9 gm/dL (3.5-5.0); BILIRUBIN,TOTAL 0.4 mg/dL (0.0-1.0); CALCIUM 7.3 mg/dL (8.4-10.2); CREATININE, serum 2.72 (0.52-1.25); POTASSIUM 4.3 mmol/L (3.4-5.0); TOTAL PROTEIN 4.3 gm/dL (6.4-8.2)
[2018-07-19 07:52] VITALS: BP 104/42; PULSE 67; TEMP 97.7
--- NOTE | 2018-07-19 09:55 | NUR ---
PATIENT TAKEN TO DIALYSIS VIA BED BY SURGICAL STAFF. WILL WAIT FOR ARRIVAL BACK TO ROOM 344.
--- NOTE | 2018-07-19 10:54 | NUR ---
@08:45 VSS, Alert and oriented x3, awakens to name, piain assessed at 6, unable to describe, states "it's all over", Assessment as charted, noticed small skin tear noted on right arm antecubial, no drainage, bed bath given, jamal care provided. Pt refused anything to eat, but drank black coffee. 09:00 medications with held per RN, will receive meds post dialysis.
--- NOTE | 2018-07-19 11:19 | NUR ---
Noon vital signs not taken, pt currently at dialysis, reported to RN
--- NOTE | 2018-07-19 11:42 | NUR ---
KRISTEL contacted and faxed updates to [facility]. SW to continue to follow.
--- NOTE | 2018-07-19 14:10 | NUR ---
PATIENT ARRIVED BACK TO ROOM 344 VIA BED FROM DIALYSIS. PATIENT SETTELED INTO ROOM. NO NEEDS AT THIS TIME.
[2018-07-19 16:56] VITALS: BP 103/52; PULSE 75; TEMP 98.7
--- NOTE | 2018-07-19 18:55 | NUR ---
PATIENT HAS REFUSED ALL MEALS, NEPRO SHAKES, JUANIS AND MAGIC CUPS OFFERED TO HER THROUGHOUT THE ENTIRE SHIFT. PATIENT AGREED TO HAVE A STRAWBERRY SHAKE AT LUNCH. PATIENT ONLY DRANK HALF OF THE STRAWBERRY SHAKE. PATIENT REFUSES TURNS INTERMITTENTLY THROUGHOUT THE DAY. PATIENT APPEARS WITHDRAWN TODAY. REPORT GIVEN TO KYLEIGH MATA.
--- NOTE | 2018-07-19 19:00 | NUR ---
Report received from KYLEIGH Leal
[2018-07-19 20:00] VITALS: BP 91/31; PULSE 71; TEMP 98.6
--- NOTE | 2018-07-19 20:18 | NUR ---
Repositioned in bed. Assessment complete. Lung bases bilaterally diminished otherwise clear. Heart sounds normal. Bowels active x4. Pulses weak. Bilateral lower leg edema +2, bilateral upper extremity edema +3, right arm wheeping. Right lower leg abrasion with bilateral lower leg brownish discoloration. Bruising to right upper arm and right hand. Coccyx bruising with mepilex present over wound. Dressing clean dry and intact. Left knee dressing present. Mild drainage present-will closely monitor. Knee brace in place. Midline present-flushed without complications. Weaver draining without complications. Dark yellow cloudy urine. Reports 8/10 generalized pain. Provided with PRN norco as ordered. Denies other needs. Call light in reach.
[2018-07-19 23:38] VITALS: BP 114/48; PULSE 65; TEMP 98.5
--- NOTE | 2018-07-19 23:45 | NUR ---
Repositioned. Rating pain 10/10 generalized. Provided scheduled tylenol. Denies other needs. Will monitor.
--- NOTE | 2018-07-20 02:14 | NUR ---
Repositioned to right side. Denies needs. Call light in reach.
[2018-07-20 03:32] VITALS: BP 123/46; PULSE 63; TEMP 98.8
--- NOTE | 2018-07-20 06:31 | NUR ---
Resting in bed this AM. Repositioned Q2H. Reported generalized body pain throughout night. Provided with PRN medication as ordered. Close to daily limit of tylenol. Denies needs this AM. Last repositioned at 0600. Call light in reach.
--- NOTE | 2018-07-20 06:45 | NUR ---
Report given to Raysa ARIZMENDI
--- NOTE | 2018-07-20 06:50 | NUR ---
Reported on to KYLEIGH Tabares
[2018-07-20 07:06] VITALS: BP 114/63; PULSE 65; TEMP 97.6
[2018-07-20 07:08] LABS: BASO % 0.3 % (0.0-2.0); EOS % 0.3 % (0-4.0); GRAN # 4.9 (1.4-6.5); GRAN % 78.4 % (42.2-75.2); LYMPH # 0.6 (1.2-3.4); MEAN CELL VOLUME 101 fl (80.0-100.0); MEAN CORPUSCULAR HGB CONC 31 g/dl (33.0-37.0); MONO # 0.7 (0.1-0.6); PLATELET COUNT 129 K/mm3 (130-400); RED BLOOD COUNT 2.64 M/mm3 (4.10-5.30); REDCELL DISTRIBUTION WIDTH-CV 21.2 % (11.5-14.5)
[2018-07-20 07:12] LABS: HEMATOCRIT 26.6 % (37.0-47.0); HEMOGLOBIN 8.2 g/dl (12.5-16.0); MEAN CORPUSCULAR HEMOGLOBIN 31 pg (27.0-31.0)
[2018-07-20 07:20] LABS: ALBUMIN 1.7 gm/dL (3.5-5.0); BILIRUBIN,TOTAL 0.3 mg/dL (0.0-1.0); CALCIUM 7.3 mg/dL (8.4-10.2); CREATININE, serum 2.06 (0.52-1.25); POTASSIUM 4.1 mmol/L (3.4-5.0); TOTAL PROTEIN 4.1 gm/dL (6.4-8.2)
--- NOTE | 2018-07-20 08:09 | NUR ---
Patient alert this am. Reports elevated pain with movement, but sleeps easy when not repositioned in bed. Student nurse working with patient this am. Patient provided with fresh linens & hygeine. Patient positioned in bed for breakfast-all patient wanted was Lesly. Lucia anton ordered & jose. Noted her blood glucose in low this am on morning labs, will really encouraged PO intake today. Patient did report nausea, which she commented is not new for her. New aquacell dressing placed to her L.knee, juani intact. Immobilzer on-her knee does appear to have a pressure wound-made sure immoblizer not placing pressure to knee. upper knee thigh also noted to be bruised. Heels are floated per orders. New allyven foam applied to coocyx with pericare. Patient does reports sore bottom, off loaded with multipe pillows used. Will continue to closely montior.
--- NOTE | 2018-07-20 08:18 | NUR ---
States she felt nausea, vomit small amount of clear liquid, pt. repositioned, assessed pain at 10/10 generalized all over body pain, Tylenol given per order,will try to eat something after she rest, denies any needs at this time call light with in reach.
--- NOTE | 2018-07-20 10:01 | NUR ---
Pt repositioned to left side, noticed a signficant amount of weeping on pillow-right arm, pillowcase changed, placed disposable pad placed under both arms,Pt also took teaspoon full of protein Jello but did not like it, refused anymore, will try grilled cheese and tomato soup for lunch, RN informed.
--- NOTE | 2018-07-20 10:50 | NUR ---
Met with pt this am at request of Dr Jack to talk about goals of care. Gerardo was awake and clearly able to speak with me about her experiences recently and the difficulty of her situation. We reviewed levels of care that people will often consider when dealing with a life-limiting illness. She reports no interest in continuing aggressive care. She also reports that this is the direction her son and brother would like for her to do. She is willing to continue antibiotics and other treatments for now but wants to speak with her son and brother this weekend to discuss stopping treatments and pursuing comfort care only. She reports to me that she has no james in her life at this point and doesn't want to live like this. No decisions were made today. She will speak with her family this weekend and then decide. She is aware that she is her own decision maker at this point. She also understands that it would be difficult to change her mind if starts to pursue comfort care and then reconsiders. See palliative care consult.
[2018-07-20 11:13] VITALS: BP 112/58; PULSE 64; TEMP 98.6
--- NOTE | 2018-07-20 12:01 | NUR ---
Pt attempted to talk with son today but he was not available. overhead worker left voicemail. Was able to talk with brother, Ky. Pt presented her situation to him and her desire to pursue comfort care only. While he did express concern at her decision and states he would not choose that decision for her, he did verbalize that he will respect her decision. Pt again reports that she has been thinking about this for a long time and is quite sure this is what she wants. We will try to get ahold of her son but as pt reports, she often can only reach him on the weekend.
--- NOTE | 2018-07-20 13:33 | NUR ---
Patient reports being comfortable at this time. Refusing to reposition, reports turning causes pain. Spoke with this am about patient condition and wishes. Pallative care involved.
--- NOTE | 2018-07-20 14:08 | NUR ---
A palliative care consult was ordered. KRISTEL then collaborated with palliative care nurse, Sangeeta. Sangeeta informed KRISTEL that the patient reports she is ready for hospice, but would like to speak to her son and brother before pursuing hospice. KRISTEL and KRISTEL menendez then followed up with the patient. The patient reports that she would like to be on hospice when she discharges from the hospital, but would like help and support contacting and speaking to her son and brother. KRISTEL, KRISTEL menendez, and Palliative Care Nurse (Sangeeta) then contacted the patient's brother, Ky. Ky was on speaker phone and was able to speak to the patient. The patient's brother reports he is not in agreeance to the patient's decision, but that he will support it. KRISTEL also attempted to contact the patient's son, Rubia, while in the patient's room. KRISTEL left a voicemail. The patient reports that her son is usually not reachable until the evening. KRISTEL and Sangeeta updated the patient's nurse. The patient's nurse reports she will inform the patient's evening nurse, so that her nurse can provide support and help try contacting the son again. KRISTEL contacted and updated Richard at [facility]. KRISTEL to continue to follow.
--- NOTE | 2018-07-20 15:09 | NUR ---
Was able to speak with son, Rubia, briefly by cell phone. This number was provided by Ky, his uncle. Rubia reports that he is busy right now but would be able to talk in about an hour- hour and one half. manager of creative services will assist pt with this call to this number along with primary nurse Clint. Pt was pleased to hear that we reached her son and did listen to the conversation on speaker phone in the room--even if only to arrange to talk later today. Son drives [employer] in the [facility] so may not always be in range of calls according to Ky.
[2018-07-20 16:10] VITALS: BP 138/63; PULSE 73; TEMP 98
--- NOTE | 2018-07-20 16:38 | NUR ---
Patient resting in bed. Worked with therapy this afternoon. Repositioned in bed.
--- NOTE | 2018-07-20 17:15 | NUR ---
Palliative Care Nurse, Sangeeta, was able to obtain another phone number for the patient's son, Rubia ([phone]). KRISTEL and the patient's nurse, Muriel, then met with the patient and contacted the patient's son. The patient's son was on speaker phone. The patient's son was supportive of the patient's decision to pursue hospice. He states that he is going to inform his job and and then try and figure out when he can head to [place]. KRISTEL and the patient's nurse discussed hospice at [facility] vs [facility]. The patient's son was interested in [facility] and the patient was also interested. KRISTEL will need to contact and fax a referral to [facility] and update [facility]. The patient's son reports that he will try and contact the hospital tomorrow or asked if we can contact him tomorrow. KRISTEL to update Palliative Care Nurse, Sangeeta, and continue to follow.
--- NOTE | 2018-07-20 17:30 | NUR ---
Patient repositioned in bed. She refused dinner, did drink a few sips of orange juice & iced tea. Blood sugar is in the 50s, really encouraged po intake. Tylenol for continued pain with repositioning. Patient spoke with her son & voiced her wishes. Social work involved. Patient is feeling sad, but glad her family is supportive.
--- NOTE | 2018-07-20 19:42 | NUR ---
Pateint resting. Bedside report to Wendy & Maribell
--- NOTE | 2018-07-20 20:00 | NUR ---
REPORT RECEIVED-ASSUMED CARE FOR INSOLE COVERER. RESTING WITH EYES CLOSED. ASSESSMENT COMPLETE. DENIES PAIN. VS STABLE. DISCUSSED END OF LIFE CARE AND STATES SHE SPOKE WITH BOTH HER SON AND BROTHER. STATES THEY ARE UPSET BUT SHE FEELS IF SHE MADE THE RIGHT CHOICE. OPENLY DISCUSSED FACT THAT HER GRAND DAUGHTER CALLED UPSET WITH HER DECISION. STATES "SHE ASKED ME WHY I DECIDED THIS AND I TOLD HER BECAUSE NO ONE HAS COME TO VISIT ME." STATES HER GRAND DAUGHTER STATED SHE WOULD COME VISIT HER THIS WEEK AND THAT HER SON WOULD BE COMING SOON, SHE HASNT SEEN HIM IN TWO YEARS. DENIES ANY OTHER QUESTIONS AT THIS TIME. SHE DID STATE "I AM COMFORTABLE WITH MY DECISION, I HAVE BEEN THROUGH SO MUCH AND IM TIRED." I ENCOURAGED HER TO CONTINUE TO SPEAK WITH FAMILY AND ASK QUESTIONS THEY COME. VERBALIZED UNDERSTANDING. CALL LIGHT WITHIN REACH. BED IN LOW POSITION. WHEELS LOCKED. WILL MONITOR.
[2018-07-20 21:06] VITALS: BP 101/44; PULSE 68; TEMP 98.4
[2018-07-21] VITALS (7 sets, daily range): BP systolic 103–125; BP diastolic 42–66; PULSE 60–81; TEMP 97.7–98.6
--- NOTE | 2018-07-21 06:00 | NUR ---
Patient refused lab work this AM, stated "I really don't want to do it".
--- NOTE | 2018-07-21 06:55 | NUR ---
appears to be dozing, bedside shift report received from KYLEIGH Nguyen
--- NOTE | 2018-07-21 08:15 | NUR ---
repositioned to right side, full assessment completed, see interventions for further info, takes sips of water but rfuses jose in sprite,
--- NOTE | 2018-07-21 10:00 | NUR ---
Sangeeta Gallo, palliative care nurse and outreach and education social worker in to see patient
--- NOTE | 2018-07-21 10:16 | NUR ---
Met with pt again this am. She reports that she would like to go to the [facility] upon discharge. Riri HOUSTON, Student social media marketing specialist, and Sangeeta Sequeira RN assisted pt again this am to talk with son and brother about her choice of [facility] by phone. Both were supportive of her choice and report they are planning to come see her. Also recieved call from daughter in law, Jennie, verifying that they are supportive and getting phone numbers and addresses. Much support provided during these calls to pt and family. Jennie's phone number is [phone] and may be easier to reach than Rubia who is driving a tug boat.
--- NOTE | 2018-07-21 10:18 | NUR ---
KRISTEL, KRISTEL Student, and Palliative Care Nurse (Sangeeta), met with the patient to review hospice at [facility] vs [facility]. The patient reports that she would like to pursue hospice at [facility]. She states she believes this would be the right fit for her. Sangeeta then contacted the patient's son (Rubia) and then the patient's brother (Ky) in the patient's room. They were on speaker phone. The patient's son appeared upset, but respected the patient's decision. The patient's brother also respected the patient's decision. The patient's son reports that he is working on making his way up to [place]. The patient's brother reports that he can come to [place] on Wednesday, 07/25, and visit the patient at [facility]. He states that he will be leaving around 08/12-08/28 to go to [place] and will not be around. He states that everything will then need to be directed to the patient's son. KRISTEL then contacted and faxed a referral to [facility] at [facility]. KRISTEL to continue to follow.
--- NOTE | 2018-07-21 10:53 | NUR ---
Spoke with Dr Jack today. Advised of contacts made with both son and brother and pt's request to go to [facility] upon discharge. Confort care blanket provided with explaination to pt.
--- NOTE | 2018-07-21 11:00 | NUR ---
Dr Jack in to see patient and discuss the plan of care
--- NOTE | 2018-07-21 11:56 | NUR ---
Dr. Jack informed KRISTEL and Sangeeta that the patient informed him that she is now on the fence on whether she wants to pursue dialysis. KRISTEL, KRISTEL menendez, and Sangeeta then met with the patient to discuss goals. The patient reports that she is thinking she would like to pursue dialysis when she leaves the hospital, would is still interested in going to the [facility]. KRISTEL then contacted Carolina at [facility] to inquire if they can accept the patient on dialysis. Carolina reports that they would not be able to accept her if she wants to continue dialysis. KRISTEL and KRISTEL menendez then met with the patient to inform. The patient reports that she would like some time to think about her options. KRISTEL to continue to follow.
--- NOTE | 2018-07-21 12:36 | NUR ---
appears to be sleeping, lying on left side, eyes closed, resp quiet ane easy
[2018-07-21 12:44] LABS: ALBUMIN 1.8 gm/dL (3.5-5.0); BILIRUBIN,TOTAL 0.4 mg/dL (0.0-1.0); CALCIUM 7.2 mg/dL (8.4-10.2); CREATININE, serum 2.82 (0.52-1.25); POTASSIUM 4.4 mmol/L (3.4-5.0); TOTAL PROTEIN 4.3 gm/dL (6.4-8.2)
--- NOTE | 2018-07-21 12:55 | NUR ---
lab called with a critical glucose of 38, she appears to be sleeping and awakens easily and given 120ml orange juice, will recheck in 15 minutes
--- NOTE | 2018-07-21 13:22 | NUR ---
blood sugar checked and it is now 80
--- NOTE | 2018-07-21 14:12 | NUR ---
Pt resting quietly at this check. Reports her back and botton hurt and requested to reposition, which was done to right side. Hasn't made decision yet regarding dialysis. Yesterday she wanted to stop dialysis but today she is reconsidering. She is aware that cannot go to [facility] with dialysis.
--- NOTE | 2018-07-21 15:55 | NUR ---
repositioned over to righ side, had small semi formed brown bowel movement and incontinent care provided, c/o pain with movement
--- NOTE | 2018-07-21 16:59 | NUR ---
blood sugar was 68, is encouraged to eat pudding but declines and requesting coke to drink
--- NOTE | 2018-07-21 18:00 | NUR ---
resting in bed and appears to be dozing
--- NOTE | 2018-07-21 18:52 | NUR ---
bedside shift report given to KYLEIGH Alvarado
--- NOTE | 2018-07-21 21:42 | NUR ---
PT IN BED WITH HOB ELEVATED TO 45 DEGREE ANGLE. PT HAS BEEN REPOSITIONED FROM LEFT TO BACK. PT DENIES PAIN OR DISCOMFORT. NO NEEDS AT THIS TIME. BS 77, GAVE CRACKERS AND OFFERED OTHER FOODS TO PT, BUT PT DECLINED. PT IS HOLGUIN THAT BS CAN DROP LOWER. PT HAS CALL LIGHT WITHIN REACH AND IN SIGHT OF NURSES' STATION.
--- NOTE | 2018-07-22 00:15 | NUR ---
PT REPOSITIONED TO BACK WITH HOB ELEVATED TO 45 DEGREE ANGLE. PT'S BS CHECKED AND BS NOW 70. PT REFUSES TO EAT OR DRINK ANYTHING. PT ADVISES THAT SHE JUST CAN'T EAT OR DRINK. PT RESTING IN BED AT THIS TIME. CALL LIGHT WITHIN REACH.
[2018-07-22 04:37] VITALS: BP 110/56; PULSE 68; TEMP 98.7
--- NOTE | 2018-07-22 06:12 | NUR ---
PT OFFERED FOOD AND DRINK, BUT PT DECLINED. PT CHANGED, HAD A SMALL INCONTINENT BOWEL MOVEMENT. REPOSITIONED IN BED. NO FURTHER NEEDS CALL LIGHT WITHIN REACH.
[2018-07-22 08:08] VITALS: BP 100/49; PULSE 64; TEMP 97
--- NOTE | 2018-07-22 10:05 | NUR ---
Spoke with pt this am while helping her with breakfast. She has not yet decided about dialysis post discharge but is planning to do dialysis today. [facility] will not admit if planning ongoing dialysis--even with another qualifying diagnosis. I contacted [facility], [facility], and [facility] and they are considering this case. Pt did eat a better breakfast today. Will continue to support pt as she makes her decisions.
[2018-07-22 12:08] VITALS: BP 129/60; PULSE 60; TEMP 97
--- NOTE | 2018-07-22 13:00 | NUR ---
KRISTEL collaborated with palliative care nurse, Sangeeta. Sangeeta contacted [facility], [facility], and [facility], to see if they would accept a patient on hospice while still continuing diaylsis. [facility] reports they could. [facility] is considering and [facility] says they could not. The patient's son and [id number] are headed to [place] tomorrow, 07/23, to be with the patient. The patient is still considering on what she would like to pursue. KRISTEL updated Richard at [facility]. KRISTEL to continue to follow.
--- NOTE | 2018-07-22 14:02 | NUR ---
Spoke with pt again this afternoon. She has not eaten anymore she said and is still planning to do dialysis today and "see how it goes". Plan for her to remain here at the hospital through the weekend and hope to discharge Wednesday once pt has had time to make her decisions about dialysis and her plan to go to [facility] or back to [facility]. I did call daughter in law Jennie to tell her the above, gave her the hospital address and [facility]'s room number. Did tell her that Dr Jack was hoping to talk with the family this weekend if possible.
--- NOTE | 2018-07-22 14:39 | NUR ---
Patient states oral pain medication did not help pain and stated it is still 10/10 to her coccyx. Currently going down to dialysis.
[2018-07-22 14:52] LABS: BASO % 0.2 % (0.0-2.0); EOS % 0.1 % (0-4.0); GRAN # 10.7 (1.4-6.5); GRAN % 87.3 % (42.2-75.2); LYMPH # 0.6 (1.2-3.4); LYMPH % 4.7 % (20.0-51.0); MEAN CELL VOLUME 101 fl (80.0-100.0); MEAN CORPUSCULAR HGB CONC 31 g/dl (33.0-37.0); MEAN PLATELET VOLUME 9.5 fl (7.4-10.4); MONO # 0.8 (0.1-0.6); MONO % 6.7 % (1.7-9.3); PLATELET COUNT 191 K/mm3 (130-400); RED BLOOD COUNT 2.95 M/mm3 (4.10-5.30); REDCELL DISTRIBUTION WIDTH-CV 20.4 % (11.5-14.5)
[2018-07-22 14:55] LABS: HEMATOCRIT 29.7 % (37.0-47.0); HEMOGLOBIN 9.1 g/dl (12.5-16.0); MEAN CORPUSCULAR HEMOGLOBIN 31 pg (27.0-31.0)
[2018-07-22 15:09] LABS: CALCIUM 7.2 mg/dL (8.4-10.2); POTASSIUM 4.8 mmol/L (3.4-5.0)
[2018-07-22 15:15] LABS: CREATININE, serum 3.34 (0.52-1.25)
[2018-07-22 18:56] VITALS: BP 87/35; PULSE 63; TEMP 97.1
--- NOTE | 2018-07-22 22:48 | NUR ---
Pt resting in bed watching TV, some C/O pain in sacral area, Pt did not eat well this evening, shift assessment complete, left Pt call light in reach, bed in lowest position.
[2018-07-23] VITALS (7 sets, daily range): BP systolic 100–111; BP diastolic 32–41; PULSE 66–76; TEMP 97.5–99
--- NOTE | 2018-07-23 05:17 | NUR ---
Pt slept some during the night,she did have some C/O pain mostly in her sacral area, castillo has not been collecting much fluid, VS have been stable although BP remains on the low side.
--- NOTE | 2018-07-23 08:00 | NUR ---
PATIENT IS DROWSY AND LETHARGIC TODAY. PATIENT IS ALERT AND ORIENTED TO SELF. PATIENT INTERMITTENTLY ORIENTED TO PLACE AND SITUATION. PATIENT AROUSES EASILY TO NAME. GENERALIZED WEAKNESS AND EDEMA NOTED. BLOOD PRESSURES LOW, AWARE, OTHERWISE VSS. LUNG BINGHAM DIMINISHED UPON AUSCULTATION AND SHALLOW BREATHING NOTED. PATIENT DENIES SOB OR A PRODUCTIVE COUGH. SEE ASSESSMENT FOR SKIN INTEGRITY. POSITIVE PEDAL PULSES EQUAL BILATERALLY. LEFT KNEE AQUACEL IS CD&I WITH KNEE IMMOBILIZER IN PLACE. ALMEIDA CATHETER TO DEPENDENT DRAINAGE WITH SCANT AMOUNTS OF HAZY OWEN URINE PRESENT IN ALMEIDA BAG. MIDLINE TO LUE. DIALYSIS CATHETER TO RIGHT CHEST. PATIENT OFF-LOADED FROM PRESSURE POINTS. EXTREMETIES ELEVATED ON PILLOWS. CALL LIGHT WITHIN REACH. PATIENT DENIES ANY OTHER NEEDS AT THIS TIME.
--- NOTE | 2018-07-23 19:00 | NUR ---
PATIENT CONTINUES TO REFUSE MOST MEALS AND REPOSITIONING. REPORT GIVEN TO KYLEIGH SESAY.
[2018-07-24 03:33] VITALS: BP 111/49; PULSE 70; TEMP 98
--- NOTE | 2018-07-24 06:44 | NUR ---
PT REPOSITIONED APPROX. Q 2 HRS. NORCO FOR PAIN/GENERAL DISCOMFORT. PT ORIENTED x3. FAMILY FROM [place] IN TO VISIT LAST NIGHT.
[2018-07-24 08:00] VITALS: BP 119/56; PULSE 75; TEMP 97.4
--- NOTE | 2018-07-24 10:00 | NUR ---
KRISTEL follow-up with patient and patient's family. KRISTEL informed that son arrived from [facility] to visit with mother. Patient reports that they have made a family decision and that she has decided to end [facility]. Patient reports that she would like to go to [facility]. Family is in agreement with this plan. KRISTEL faxed referral to [facility] at [phone] and made contact at [phone] esposito and call from [facility] for acceptance. KRISTEL will assist with setting up transfer.
--- NOTE | 2018-07-24 12:41 | NUR ---
Update: Patient is pending transfer to [facility] 07/25/2018. Awaiting following PA. Family agreeable to plan. SW will need to setup EMS transport [facility] and fax DC orders to [phone].
--- NOTE | 2018-07-24 19:00 | NUR ---
END OF SHIFT NOTE. SEE ASSESSMENT. PATIENT A&O X4 WITH SOME FORGETFULNESS. BLOOD PRESSURES LOW, OTHERWISE VSS. LEFT KNEE AQUACEL CD&I. KNEE IMMOBILIZER IN PLACE. ICE PACK TO LEFT KNEE. ALMEIDA CATHETER TO DEPENDENT DRAINAGE. MIDLINE TO LUE. PATIENT GIVEN 1 TABLET OF NORCO PRN DURING SHIFT FOR PAIN. PATIENT REPOSITIONED APPROXIMATELY Q2H. PATIENT OCCASIONALLY REFUSED REPOSITIONING. PATIENT REFUSED BREAKFAST, DINNER, SHAKES AND JUANIS. FAMILY PRESENT AT BEDSIDE THROUGHOUT DAY SHIFT. REPORT GIVEN TO KYLEIGH SESAY.
[2018-07-25 00:12] VITALS: BP 120/54; PULSE 69; TEMP 98.5
--- NOTE | 2018-07-25 07:34 | NUR ---
PT ADMIN. NORCO FOR LLE DISCOMFORT. NO N/V. PT RESTED QUIETLY ALL NIGHT. PT TURNED APPROX. Q 2 HRS.
[2018-07-25 08:26] VITALS: BP 100/59; PULSE 71; TEMP 98.3
--- NOTE | 2018-07-25 10:50 | NUR ---
KRISTEL met with patient and family about discharge plan. Patient will discharge today to [facility] via EMS. KRISTEL presented IM to patient. Patient's son signed and was given a copy. KRISTEL faxed discharge orders to [facility] and is waiting on a doctor to accept patient.
--- NOTE | 2018-07-25 11:00 | NUR ---
Family at bedside. Plan is for patient to discharge to hospice. She has been sleeping off and on. [place] has been given for pain. No other changes at this time. Call light within reach.
--- NOTE | 2018-07-25 11:14 | NUR ---
Met with Tito Schneider, and pt this am. Questions invited and answered. Pt will go to [facility] today by EMS. Pt and family are onboard with current plan and Dr Mo has been in to see pt and write orders.
--- NOTE | 2018-07-25 14:15 | NUR ---
midline intact left upper arm. With sterile technique left upper arm midline dressing change done with insertion site cleansed with ChloraPrep 1, chlorhexidine impregnated disc applied, skin prep, StatLock, and Tegaderm applied. No signs or symptoms of IV complications noted. No concerns voiced.
--- NOTE | 2018-07-25 16:38 | NUR ---
KRISTEL spoke with Juancho from [facility]. They have been unable to spoeak with Dr Plasencia about following patient while she is at the hospice house. She reports she has left over 6 messages and has not gotten a call back. KRISTEL called Dr Sandoval office and spoke with his nurse. She reports Dr Plasencia will follow patient. KRISTEL requested nurse contact Juancho at the hospice house. Juancho then called KRISTEL and reported that they will need medication orders from Dr Plasencia before patient will be able to be admitted to the hospice house and since it is late in the day, they will likley not be able to admit patient until tomorrow. KRISTEL updated patient and family.
[2018-07-25 16:48] VITALS: BP 96/22; PULSE 62; TEMP 98.5
--- NOTE | 2018-07-25 17:00 | NUR ---
Patient is not discharging today. Family aware. No other changes at this time. Dr Shepard was by and changed her dressing to the left knee. He removed some juani and placed a new dressing over it. No other changes at this time. Call light within reach.
[2018-07-25 19:41] VITALS: BP 100/36; PULSE 64; TEMP 98.2
--- NOTE | 2018-07-25 20:00 | NUR ---
Patient rests in bed with eyes closed. Respirations with ease.
--- NOTE | 2018-07-25 21:30 | NUR ---
Patient reports pain all over to touch and movement. Kimball given but pocketing med/not swallowing and bites of applesauce and sips of liquid given. Rest of meds given crushed in applesauce and swallows without problems. Will await to reposition patient in 30 minutes for pain med to take effect.
--- NOTE | 2018-07-25 22:15 | NUR ---
Patient awakened for repositioning. Patient stated name and after question repeated several times. Incontinent small amount loose graham stool and cleansed. Good cath care provided and allevyn coccyx dressing changed. Wound to coccyx large, bruised and skin peeling. Either DTI versus unstageable. Bleeds small amount. Patient repostioned max 2 assist to her right side. Heel protectors on and BUE elevated on pillows/pillow between legs. Immobilizer to left knee CDI.
--- NOTE | 2018-07-26 01:45 | NUR ---
Patient has been resting with eyes closed. Awakened briefly to reposition to her left side. Minimal urine output in castillo.
--- NOTE | 2018-07-26 04:03 | NUR ---
voices yes to having pain all over, achy pain. "I hurt". Is not able to give a number. Thurman 1 tab given and patient repostioned 20minutes later to her right side.
[2018-07-26 04:16] VITALS: BP 100/31; PULSE 80; TEMP 98.8
--- NOTE | 2018-07-26 05:12 | NUR ---
Patient incontinent of loose bm and 2 assist to change. Cath care done and patient to right side. Pillow between legs and under arms.
--- NOTE | 2018-07-26 06:11 | NUR ---
Patient rests with eyes closed. Respirations with ease.
--- NOTE | 2018-07-26 07:50 | NUR ---
Patient family at bedside. Updated them on her night. Patient still resting, will let her rest.
[2018-07-26 08:47] VITALS: BP 108/39; PULSE 64; TEMP 99.1
--- NOTE | 2018-07-26 09:03 | NUR ---
Patient will discharge today (07/26) to [facility]. SW arranged EMS transport for 10:30am.
--- NOTE | 2018-07-26 10:53 | NUR ---
Patient provided with total Hygiene this am. Patient had orange sherbert with AM medications. Patient positioned for comfort. Her family very supportive at bedside. Patient transpered to hospice house via EMS her family meeting her there. Report called to Hospice house nurse.
== END 2018-07-26 10:56 | disposition hospice, inpatient (51) | DRG 466 ==
LOC: ICU 07-11 08:52 → SURG 07-11 08:52 → ICU 07-12 16:15 → SURG 07-15 12:05
PROVIDERS: Internal Medicine; Orthopaedic Surgery; ADMIT Internal Medicine Nephrology
PROC: 5A1D70Z Performance of Urinary Filtration, Intermittent, Less than 6 Hours Per Day (ICD-10-PCS; 2018-07-11)
PROC: 0SRD0EZ Replacement of Left Knee Joint with Articulating Spacer, Open Approach (ICD-10-PCS; 2018-07-12)
PROC: 0SBD0ZZ Excision of Left Knee Joint, Open Approach (ICD-10-PCS; 2018-07-12)
PROC: 0SPD0JZ Removal of Synthetic Substitute from Left Knee Joint, Open Approach (ICD-10-PCS; principal; 2018-07-12 13:00)
PROC: 5A1D70Z Performance of Urinary Filtration, Intermittent, Less than 6 Hours Per Day (ICD-10-PCS; 2018-07-14)
PROC: 5A1D70Z Performance of Urinary Filtration, Intermittent, Less than 6 Hours Per Day (ICD-10-PCS; 2018-07-16)
PROC: 5A1D70Z Performance of Urinary Filtration, Intermittent, Less than 6 Hours Per Day (ICD-10-PCS; 2018-07-19)
PROC: 5A1D70Z Performance of Urinary Filtration, Intermittent, Less than 6 Hours Per Day (ICD-10-PCS; 2018-07-22)
DX: T84.54XA Infection and inflammatory reaction due to internal left knee prosthesis, initial encounter (principal); N18.6 End stage renal disease; E44.0 Moderate protein-calorie malnutrition; I13.2 Hypertensive heart and chronic kidney disease with heart failure and with stage 5 chronic kidney disease, or end stage renal disease; I50.22 Chronic systolic (congestive) heart failure; Z51.5 Encounter for palliative care; Z66 Do not resuscitate; I95.9 Hypotension, unspecified; M65.9 Synovitis and tenosynovitis, unspecified; I25.10 Atherosclerotic heart disease of native coronary artery without angina pectoris; E78.5 Hyperlipidemia, unspecified; B95.7 Other staphylococcus as the cause of diseases classified elsewhere; Z99.2 Dependence on renal dialysis; Z95.2 Presence of prosthetic heart valve; Z96.652 Presence of left artificial knee joint; Z95.0 Presence of cardiac pacemaker; Z95.5 Presence of coronary angioplasty implant and graft; I87.8 Other specified disorders of veins; D64.9 Anemia, unspecified; G47.33 Obstructive sleep apnea (adult) (pediatric); I08.3 Combined rheumatic disorders of mitral, aortic and tricuspid valves; Z68.23 Body mass index [BMI] 23.0-23.9, adult; R62.7 Adult failure to thrive
CPT/HCPCS: A4314; C1713; C1751; C1776; C1894; J0690; J0882; J1170; J1644; J2370; J2405; J2704; J3010; J3260; J3370; J7030; J7050; L1830; P9016

== ENCOUNTER 2018-07-01 15:28 | Emergency (ER) | payer MEDICARE, MEDICAID ==
[~2018-07-01] VITALS: Ht 165.1 cm; Wt 75.0 kg
[2018-07-01 15:33] VITALS: TEMP 97
[2018-07-01 17:28] LABS: BASO % 0.3 % (0.0-2.0); GRAN # 8.4 (1.4-6.5); GRAN % 89.7 % (42.2-75.2); LYMPH # 0.3 (1.2-3.4); LYMPH % 3.1 % (20.0-51.0); MEAN CELL VOLUME 104 fl (80.0-100.0); MEAN CORPUSCULAR HGB CONC 31 g/dl (33.0-37.0); MEAN PLATELET VOLUME 9.7 fl (7.4-10.4); MONO # 0.6 (0.1-0.6); MONO % 6.1 % (1.7-9.3); PLATELET COUNT 196 K/mm3 (130-400); RED BLOOD COUNT 2.85 M/mm3 (4.10-5.30)
[2018-07-01 17:39] LABS: HEMATOCRIT 29.6 % (37.0-47.0); HEMOGLOBIN 9.2 g/dl (12.5-16.0); MEAN CORPUSCULAR HEMOGLOBIN 32 pg (27.0-31.0)
[2018-07-01 17:44] LABS: ALBUMIN 2.6 gm/dL (3.5-5.0); BILIRUBIN,TOTAL 0.7 mg/dL (0.0-1.0); C-REACTIVE PROTEIN 7.8 mg/dL (0.0-0.9); CALCIUM 7.8 mg/dL (8.4-10.2); POTASSIUM 4.3 mmol/L (3.4-5.0); TOTAL PROTEIN 5.7 gm/dL (6.4-8.2)
[2018-07-01 18:03] LABS: TROPONIN-I 0.037 ng/mL (0.000-0.035)
[2018-07-01 18:50] VITALS: BP 117/53; PULSE 68
== END 2018-07-01 18:50 | disposition home or self-care (01) ==
LOC: COL.ER 15:28
PROVIDERS: Emergency Medicine
DX: G45.9 Transient cerebral ischemic attack, unspecified (principal); I12.0 Hypertensive chronic kidney disease with stage 5 chronic kidney disease or end stage renal disease; N18.6 End stage renal disease; R51 Headache; E78.00 Pure hypercholesterolemia, unspecified; Z99.2 Dependence on renal dialysis